=== PATIENT | male | born 1960 | race Caucasian/White ===

== ENCOUNTER 2020-08-31 14:09 | Inpatient (IN) | payer OTHER ==
[2020-08-31 15:11] VITALS: BMI 24.9
[2020-08-31] MEDS ORDERED: P-EPHED 60MG/TRIPROLIDI 2.5MG TABLET PO PRN (23:29)
[2020-08-31] MEDS ORDERED: NALOXONE HCL 0.4 MG/ML VIAL IM PRN (23:29)
[2020-08-31] MEDS ORDERED: MAGNESIUM HYDROX 2400MG/30ML ORAL SUSPENSION 30 ML CUP PO PRN (23:29)
[2020-08-31] MEDS ORDERED: LOPERAMIDE HCL 2 MG CAPSULE PO PRN (23:29)
[2020-08-31] MEDS ORDERED: NALOXONE (NARCAN) HCL 4 MG/0.1 ML SPRAY NS PRN (23:29)
[2020-08-31] MEDS ORDERED: MAGNESIUM CITRATE 300 ML BOTTLE PO PRN (23:29)
[2020-08-31] MEDS ORDERED: guaiFENesin 200 MG/10 ML 10 ML UNIT-DOSE CUPS PO PRN (23:29)
[2020-09-01] MEDS: MELATONIN 5 MG TABLETS PO SCH ×2 (00:49→21:58)
[2020-09-01] MEDS ORDERED: hydrOXYzine PAMOATE 25 MG CAPSULE (FP) PO SCH (06:00)
[2020-09-01] MEDS ORDERED: methaDONE HCL 10 MG TABLET PO ONE ×3 (09:34)
[2020-09-01] MEDS: PRENATAL VITAMINS W/ FOLIC ACID TABLET (FP) PO SCH (09:39)
[2020-09-01] MEDS: BUDESONIDE/FORMETEROL FUMARATE 160/4.5 mcg INHALER IH SCH ×2 (09:40→21:57)
[2020-09-01] MEDS: TAMSULOSIN HCL 0.4 MG CAP PO SCH (09:40)
[2020-09-01] MEDS ORDERED: EMTRICITABINE PO SCH (10:00)
[2020-09-01] MEDS ORDERED: TENOFOVIR ALAFENAMIDE PO SCH (10:00)
[2020-09-01] MEDS ORDERED: ERGOCALCIFEROL (VIT D2) 50,000 UNIT (1.25 MG) CAPSULE PO SCH (10:00)
[2020-09-01] MEDS ORDERED: BICTEGRAVIR PO SCH (10:00)
[2020-09-01] MEDS ORDERED: PANTOPRAZOLE 20 MG TABLET PO SCH (10:00)
[2020-09-01 10:06] LABS: HEMATOCRIT 38.5 % (35.4-49); MCH 32.1 pg (25.7-33.7); MCHC 33.8 g/dl (32.0-35.9); MEAN CELL VOLUME 94.8 fl (80-96); MEAN PLT VOLUME 10.2 fl (7.5-11.1); PLATELET COUNT 182 K/MM3 (134-434); RBC 4.06 M/mm3 (4.00-5.60); RDW 13.9 % (11.9-15.9); URINE APPEARANCE CLEAR; URINE BILIRUBIN NEGATIVE (NEGATIVE); URINE COLOR YELLOW; URINE GLUCOSE (UA) NEGATIVE (NEGATIVE); URINE KETONE NEGATIVE (NEGATIVE); URINE LEUK ESTERASE NEGATIVE (NEGATIVE); URINE NITRITE NEGATIVE (NEGATIVE); URINE PROTEIN NEGATIVE (NEGATIVE)
[2020-09-01 10:18] LABS: ALBUMIN 4.2 g/dl (3.4-5.0); CALCIUM 8.5 mg/dL (8.5-10.1)
[2020-09-01 10:19] LABS: BLOOD UREA NITROGEN 15.4 mg/dL (7-18)
[2020-09-01] MEDS ORDERED: methaDONE HCL 40 MG DISPERSABLE TABLET ONE (10:21)
[2020-09-01] MEDS ORDERED: methaDONE HCL 10 MG TABLET ONE (10:21)
[2020-09-01 10:23] LABS: BILIRUBIN,TOTAL 0.6 mg/dL (0.2-1); TOT PROT 7.6 g/dl (6.4-8.2)
[2020-09-01] MEDS: PANTOPRAZOLE 40 MG TABLET PO SCH (10:24)
[2020-09-01] MEDS: BICTEGRAV/EMTRICIT/TENOFOV (BIKTARVY) 50-200-25 MG TABLET PO SCH (10:24)
[2020-09-01] MEDS: MIRTAZAPINE 15 MG TABLET (FP) PO SCH (21:57)
[2020-09-01] MEDS: risperiDONE 1 MG TABLET PO SCH (21:57)
[2020-09-01] MEDS: THIAMINE HCL 100 MG TABLET (FP) PO SCH (21:58)
[2020-09-01] MEDS: MONTELUKAST NA 10 MG TABLET PO SCH (21:58)
[2020-09-01] MEDS: hydrOXYzine PAMOATE 25 MG CAPSULE (FP) PO PRN (21:59)
[2020-09-02] MEDS ORDERED: methaDONE HCL 10 MG TABLET PO SCH ×2 (06:00)
[2020-09-02] MEDS ORDERED: methaDONE HCL 40 MG DISPERSABLE TABLET ONE (06:36)
[2020-09-02] MEDS ORDERED: methaDONE HCL 10 MG TABLET ONE (06:36)
[2020-09-02] MEDS: PANTOPRAZOLE 40 MG TABLET PO SCH (09:36)
[2020-09-02] MEDS: TAMSULOSIN HCL 0.4 MG CAP PO SCH (09:36)
[2020-09-02] MEDS: PRENATAL VITAMINS W/ FOLIC ACID TABLET (FP) PO SCH (09:36)
[2020-09-02] MEDS: BUDESONIDE/FORMETEROL FUMARATE 160/4.5 mcg INHALER IH SCH ×2 (09:36→21:13)
[2020-09-02] MEDS: BICTEGRAV/EMTRICIT/TENOFOV (BIKTARVY) 50-200-25 MG TABLET PO SCH (09:37)
[2020-09-02] MEDS: MIRTAZAPINE 15 MG TABLET (FP) PO SCH (21:13)
[2020-09-02] MEDS: MAG HYDROX/AL HYDROX/SIMETH 30 ML UNIT-DOSE CUP PO PRN (21:13)
[2020-09-02] MEDS: MELATONIN 5 MG TABLETS PO SCH (21:13)
[2020-09-02] MEDS: risperiDONE 1 MG TABLET PO SCH (21:13)
[2020-09-02] MEDS: MONTELUKAST NA 10 MG TABLET PO SCH (21:13)
[2020-09-02] MEDS: THIAMINE HCL 100 MG TABLET (FP) PO SCH (21:13)
[2020-09-03] MEDS ORDERED: methaDONE HCL 10 MG TABLET ONE (03:34)
[2020-09-03] MEDS ORDERED: methaDONE HCL 40 MG DISPERSABLE TABLET ONE (03:34)
[2020-09-03] MEDS: TAMSULOSIN HCL 0.4 MG CAP PO SCH (08:41)
[2020-09-03] MEDS: MAG HYDROX/AL HYDROX/SIMETH 30 ML UNIT-DOSE CUP PO PRN (09:01)
[2020-09-03] MEDS: PRENATAL VITAMINS W/ FOLIC ACID TABLET (FP) PO SCH (09:41)
[2020-09-03] MEDS: BICTEGRAV/EMTRICIT/TENOFOV (BIKTARVY) 50-200-25 MG TABLET PO SCH (09:41)
[2020-09-03] MEDS: PANTOPRAZOLE 40 MG TABLET PO SCH (09:41)
[2020-09-03] MEDS: BUDESONIDE/FORMETEROL FUMARATE 160/4.5 mcg INHALER IH SCH ×2 (09:42→21:50)
[2020-09-03] MEDS ORDERED: PT OWN MED DRAWER 7, Y5N ONE (19:08)
[2020-09-03] MEDS: risperiDONE 1 MG TABLET PO SCH (21:50)
[2020-09-03] MEDS: MIRTAZAPINE 15 MG TABLET (FP) PO SCH (21:50)
[2020-09-03] MEDS: MONTELUKAST NA 10 MG TABLET PO SCH (21:50)
[2020-09-03] MEDS: MELATONIN 5 MG TABLETS PO SCH (21:50)
[2020-09-03] MEDS: THIAMINE HCL 100 MG TABLET (FP) PO SCH (21:50)
[2020-09-03] MEDS: hydrOXYzine PAMOATE 25 MG CAPSULE (FP) PO PRN (21:52)
[2020-09-04] MEDS ORDERED: methaDONE HCL 10 MG TABLET ONE (03:23)
[2020-09-04] MEDS ORDERED: methaDONE HCL 40 MG DISPERSABLE TABLET ONE (03:23)
[2020-09-04] MEDS ORDERED: PT OWN MED DRAWER 7, Y5N ONE (08:51)
[2020-09-04] MEDS: TAMSULOSIN HCL 0.4 MG CAP PO SCH ×2 (09:38→22:48)
[2020-09-04] MEDS: PANTOPRAZOLE 40 MG TABLET PO SCH (09:38)
[2020-09-04] MEDS: PRENATAL VITAMINS W/ FOLIC ACID TABLET (FP) PO SCH (09:39)
[2020-09-04] MEDS: BICTEGRAV/EMTRICIT/TENOFOV (BIKTARVY) 50-200-25 MG TABLET PO SCH (09:39)
[2020-09-04] MEDS: BUDESONIDE/FORMETEROL FUMARATE 160/4.5 mcg INHALER IH SCH ×2 (09:39→21:14)
[2020-09-04] MEDS: THIAMINE HCL 100 MG TABLET (FP) PO SCH (21:14)
[2020-09-04] MEDS: MONTELUKAST NA 10 MG TABLET PO SCH (21:14)
[2020-09-04] MEDS: MELATONIN 5 MG TABLETS PO SCH (21:14)
[2020-09-04] MEDS: risperiDONE 1 MG TABLET PO SCH (21:14)
[2020-09-04] MEDS: MIRTAZAPINE 15 MG TABLET (FP) PO SCH (21:14)
[2020-09-04] MEDS: hydrOXYzine PAMOATE 25 MG CAPSULE (FP) PO PRN (21:17)
[2020-09-04] MEDS: IBUPROFEN 400 MG TABLET (FP) PO PRN (22:49)
[2020-09-05] MEDS ORDERED: methaDONE HCL 40 MG DISPERSABLE TABLET ONE (06:24)
[2020-09-05] MEDS ORDERED: methaDONE HCL 10 MG TABLET ONE (06:24)
[2020-09-05] MEDS: hydrOXYzine PAMOATE 25 MG CAPSULE (FP) PO PRN ×2 (06:29→21:04)
[2020-09-05] MEDS ORDERED: TAMSULOSIN HCL 0.4 MG CAP PO SCH ×2 (08:30)
[2020-09-05] MEDS: PRENATAL VITAMINS W/ FOLIC ACID TABLET (FP) PO SCH (09:47)
[2020-09-05] MEDS: PANTOPRAZOLE 40 MG TABLET PO SCH (09:48)
[2020-09-05] MEDS: BUDESONIDE/FORMETEROL FUMARATE 160/4.5 mcg INHALER IH SCH ×2 (09:48→21:03)
[2020-09-05] MEDS: BICTEGRAV/EMTRICIT/TENOFOV (BIKTARVY) 50-200-25 MG TABLET PO SCH (09:48)
[2020-09-05] MEDS ORDERED: COLLOIDAL OATMEAL 1 BAR EACH TP PRN (10:45)
[2020-09-05] MEDS: ALBUTEROL SO4 HFA INHALER IH PRN (18:23)
[2020-09-05] MEDS: THIAMINE HCL 100 MG TABLET (FP) PO SCH (21:03)
[2020-09-05] MEDS: MONTELUKAST NA 10 MG TABLET PO SCH (21:03)
[2020-09-05] MEDS: MELATONIN 5 MG TABLETS PO SCH (21:04)
[2020-09-05] MEDS: risperiDONE 1 MG TABLET PO SCH (21:04)
[2020-09-05] MEDS: TAMSULOSIN HCL 0.4 MG CAP PO SCH (21:04)
[2020-09-05] MEDS: MIRTAZAPINE 15 MG TABLET (FP) PO SCH (21:04)
[2020-09-05] MEDS: NAPHAZOLINE/PHENIRAMINE OPHTHALMIC 15 ML BOTTLE OU PRN (21:17)
[2020-09-06] MEDS ORDERED: methaDONE HCL 40 MG DISPERSABLE TABLET ONE (03:57)
[2020-09-06] MEDS ORDERED: methaDONE HCL 10 MG TABLET ONE (03:57)
[2020-09-06 06:08] LABS: SARS-CoV-2 NAA Not Detected (Not Detected)
[2020-09-06] MEDS: PRENATAL VITAMINS W/ FOLIC ACID TABLET (FP) PO SCH (10:42)
[2020-09-06] MEDS: BICTEGRAV/EMTRICIT/TENOFOV (BIKTARVY) 50-200-25 MG TABLET PO SCH (10:43)
[2020-09-06] MEDS: PANTOPRAZOLE 40 MG TABLET PO SCH (10:43)
[2020-09-06] MEDS: BUDESONIDE/FORMETEROL FUMARATE 160/4.5 mcg INHALER IH SCH ×2 (10:43→22:16)
[2020-09-06] MEDS: NAPHAZOLINE/PHENIRAMINE OPHTHALMIC 15 ML BOTTLE OU PRN ×2 (11:13→22:18)
[2020-09-06] MEDS: TOLNAFTATE 1% CREAM 15 GM TUBE TP SCH ×2 (12:35→22:16)
[2020-09-06] MEDS: ALBUTEROL SO4 HFA INHALER IH PRN (15:50)
[2020-09-06] MEDS: hydrOXYzine PAMOATE 25 MG CAPSULE (FP) PO PRN (22:15)
[2020-09-06] MEDS: THIAMINE HCL 100 MG TABLET (FP) PO SCH (22:15)
[2020-09-06] MEDS: risperiDONE 1 MG TABLET PO SCH (22:15)
[2020-09-06] MEDS: MONTELUKAST NA 10 MG TABLET PO SCH (22:15)
[2020-09-06] MEDS: MIRTAZAPINE 15 MG TABLET (FP) PO SCH (22:15)
[2020-09-06] MEDS: TAMSULOSIN HCL 0.4 MG CAP PO SCH (22:15)
[2020-09-06] MEDS: MELATONIN 5 MG TABLETS PO SCH (22:17)
[2020-09-06] MEDS: IBUPROFEN 400 MG TABLET (FP) PO PRN (22:18)
[2020-09-07] MEDS ORDERED: methaDONE HCL 10 MG TABLET ONE (03:57)
[2020-09-07] MEDS ORDERED: methaDONE HCL 40 MG DISPERSABLE TABLET ONE (03:57)
[2020-09-07] MEDS ORDERED: PATIENT'S OWN MEDICATION (NON-FORMULARY) (Umeclidinium Bromide [Incruse Ellipta] 62.5 MCG IH SCH (10:00)
[2020-09-07] MEDS: BUDESONIDE/FORMETEROL FUMARATE 160/4.5 mcg INHALER IH SCH ×2 (10:39→22:07)
[2020-09-07] MEDS: PRENATAL VITAMINS W/ FOLIC ACID TABLET (FP) PO SCH (10:39)
[2020-09-07] MEDS: BICTEGRAV/EMTRICIT/TENOFOV (BIKTARVY) 50-200-25 MG TABLET PO SCH (10:40)
[2020-09-07] MEDS: PANTOPRAZOLE 40 MG TABLET PO SCH (10:40)
[2020-09-07] MEDS: ACETAMINOPHEN 325 MG TABLET (FP) PO PRN ×2 (10:41→17:13)
[2020-09-07] MEDS: TOLNAFTATE 1% CREAM 15 GM TUBE TP SCH ×2 (10:41→22:04)
[2020-09-07] MEDS: hydrOXYzine PAMOATE 25 MG CAPSULE (FP) PO PRN (14:38)
[2020-09-07] MEDS: ALBUTEROL SO4 HFA INHALER IH PRN ×2 (15:49→19:49)
[2020-09-07] MEDS: MAG HYDROX/AL HYDROX/SIMETH 30 ML UNIT-DOSE CUP PO PRN (19:49)
[2020-09-07 20:35] VITALS: BP 81/49; PULSE 88
[2020-09-07] MEDS: TAMSULOSIN HCL 0.4 MG CAP PO SCH (22:02)
[2020-09-07] MEDS: MELATONIN 5 MG TABLETS PO SCH (22:02)
[2020-09-07] MEDS: risperiDONE 1 MG TABLET PO SCH (22:03)
[2020-09-07] MEDS: MONTELUKAST NA 10 MG TABLET PO SCH (22:03)
[2020-09-07] MEDS: MIRTAZAPINE 15 MG TABLET (FP) PO SCH (22:03)
[2020-09-07] MEDS: THIAMINE HCL 100 MG TABLET (FP) PO SCH (22:04)
[2020-09-07 23:56] VITALS: TEMP 99.1
== END 2020-09-08 07:45 | disposition short-term general hospital (02) | DRG 772 ==
LOC: YASAS 14:09 → Y5N 20:44
PROVIDERS: ADMIT Allergy & Immunology; ATTEND Allergy & Immunology
PROC: HZ42ZZZ Group Counseling for Substance Abuse Treatment, Cognitive-Behavioral (ICD-10-PCS; principal; 2020-08-31)
DX: F11.20 Opioid dependence, uncomplicated (principal); F10.20 Alcohol dependence, uncomplicated; F14.20 Cocaine dependence, uncomplicated; F19.282 Other psychoactive substance dependence with psychoactive substance-induced sleep disorder; F41.8 Other specified anxiety disorders; F32.9 Major depressive disorder, single episode, unspecified; Z21 Asymptomatic human immunodeficiency virus [HIV] infection status; I95.9 Hypotension, unspecified; D64.9 Anemia, unspecified; J44.9 Chronic obstructive pulmonary disease, unspecified; K21.9 Gastro-esophageal reflux disease without esophagitis; N40.0 Benign prostatic hyperplasia without lower urinary tract symptoms; Z96.641 Presence of right artificial hip joint; Z86.19 Personal history of other infectious and parasitic diseases; Z87.891 Personal history of nicotine dependence; Z91.410 Personal history of adult physical and sexual abuse
CPT/HCPCS: 36415; 80053; 81003; 85027; 86593; 86780; 93005; 93010; C9803; J2794; U0003; U0005

== ENCOUNTER 2020-09-07 21:18 | Inpatient (IN) | payer OTHER ==
[2020-09-07] MEDS ORDERED: ALBUTEROL SO4 HFA INHALER IH ONE ×2 (22:16→22:59)
[2020-09-07] MEDS ORDERED: LACTATED RINGERS SOLUTION 1000 ML INFUS.BAG IV ONE (22:27)
[2020-09-07 22:37] LABS: BASO % 0.1 % (0-2.0); EOS % 0.1 % (0-4.5); HEMATOCRIT 36.1 % (35.4-49); HEMOGLOBIN 12.1 GM/dL (11.7-16.9); LYMPH % 6.6 % (8-40); MCH 31.6 pg (25.7-33.7); MCHC 33.5 g/dl (32.0-35.9); MEAN CELL VOLUME 94.3 fl (80-96); MEAN PLT VOLUME 9.2 fl (7.5-11.1); MONO % 8.8 % (3.8-10.2); NEUT % 84.4 % (42.8-82.8); PLATELET COUNT 149 K/MM3 (134-434); RBC 3.83 M/mm3 (4.00-5.60); RDW 13.7 % (11.9-15.9); WHITE BLOOD COUNT 13.8 K/mm3 (4.0-10.0)
[2020-09-07 22:50] LABS: INR 1.26 (0.83-1.09); PROTHROMBIN TIME (PATIENT) 15.4 SEC (9.7-13.0)
[2020-09-07 22:53] LABS: ACTIVATED PTT 27.2 SECONDS (25.2-36.5)
[2020-09-07 22:58] LABS: CHLORIDE 96 mmol/L (98-107); SODIUM 133 mmol/L (136-145)
[2020-09-07 23:02] LABS: CALCIUM 8.5 mg/dL (8.5-10.1)
[2020-09-07 23:03] LABS: ALBUMIN 3.6 g/dl (3.4-5.0); ANION GAP 7 MMOL/L (8-16); BLOOD UREA NITROGEN 21.8 mg/dL (7-18); CO2 30 mmol/L (21-32); GLUCOSE,RANDOM 121 mg/dL (74-106)
[2020-09-07 23:06] LABS: CREATININE 1.5 mg/dL (0.55-1.3); SGOT/AST 20 U/L (15-37); SGPT/ALT 25 U/L (13-61)
[2020-09-07 23:07] LABS: BILIRUBIN,TOTAL 0.8 mg/dL (0.2-1); TOT PROT 7.2 g/dl (6.4-8.2)
[2020-09-07 23:08] LABS: ALK PHOS 113 U/L (45-117)
[2020-09-07 23:31] LABS: LACTIC ACID 3.4 mmol/L (0.4-2.0)
[2020-09-07] MEDS ORDERED: PIPERACILLIN/TAZOB 4.5 GM 4.5 GM in DEXTROSE 5%-WATER 100 ML IVPB ONE (23:33)
[2020-09-07] MEDS ORDERED: VANCOMYCIN 1,250 MG in DEXTROSE 5%-WATER - 250 ML IVPB ONE (23:33)
[2020-09-07] MEDS ORDERED: ACETAMINOPHEN 1000 MG/100 ML VIAL (NON FORMULARY) IVPB ONE (23:36)
[2020-09-07] MEDS ORDERED: ACETAMINOPHEN INJECTION 100 ML IVPB ONE (23:45)
[2020-09-07] MEDS ORDERED: PIPERACILLIN/TAZOB 4.5 GM 4.5 GM/100 ML BAG IVPB ONE (23:45)
[2020-09-08] MEDS ORDERED: LACTATED RINGERS SOLUTION 1000 ML INFUS.BAG IV ONE (01:03)
[2020-09-08] MEDS ORDERED: SODIUM CHLORIDE 0.9% 1000 ML INFUS.BAG IV ONE ×2 (01:04→01:05)
[2020-09-08] MEDS ORDERED: NOREPINEPHRINE NS PREMIX 8,000 MCG/500 ML BAG IVPB SCH (01:15)
[2020-09-08] MEDS ORDERED: ONDANSETRON 4 MG/2 ML VIAL ONE (01:29)
[2020-09-08] MEDS: NOREPINEPHRINE NS PREMIX 8,000 MCG/500 ML BAG IVPB SCH (02:20)
[2020-09-08] MEDS ORDERED: VASOPRESSIN 40 UNITS in SODIUM CHLORIDE 98 ML IVPB SCH (03:45)
[2020-09-08] MEDS ORDERED: VANCOMYCIN/WATER BAGS 1,250 MG/250 ML BAG IVPB SCH ×2 (03:45→13:00)
[2020-09-08] MEDS: SODIUM CHLORIDE 1,000 ML IV SCH (03:59)
[2020-09-08 04:42] LABS: PH,URINE 6.5 (5.0-8.0); URINE APPEARANCE CLEAR; URINE BILIRUBIN NEGATIVE (NEGATIVE); URINE COLOR YELLOW; URINE GLUCOSE (UA) NEGATIVE (NEGATIVE); URINE KETONE NEGATIVE (NEGATIVE); URINE LEUK ESTERASE NEGATIVE (NEGATIVE); URINE NITRITE NEGATIVE (NEGATIVE); URINE PROTEIN NEGATIVE (NEGATIVE); URINE UROBILINOGEN 0.2 mg/dL (0.2-1.0)
[2020-09-08] MEDS ORDERED: HYDROCORTISONE 20 MG TABLET PO SCH (04:45)
[2020-09-08 05:21] LABS: COCAINE, UR NEGATIVE ng/ml (CUTOFF=300); OPIATES, URI NEGATIVE ng/ml (CUTOFF=300)
[2020-09-08 05:22] LABS: PHENCYCLIDINE,URINE NEGATIVE ng/ml (CUTOFF=25); URINE AMPHETAMINES NEGATIVE ng/ml (CUTOFF=500); URINE BARBITURATES NEGATIVE ng/ml (CUTOFF=200); URINE BENZODIAZEPINES NEGATIVE ng/ml (CUTOFF=200)
[2020-09-08 05:25] LABS: METHADONE, UR POSITIVE ng/ml (CUTOFF=300)
[2020-09-08 05:48] LABS: LACTIC ACID 2.3 mmol/L (0.4-2.0)
[2020-09-08] MEDS ORDERED: METHADONE HCL 10 MG TABLET (FOR DETOX USE ONLY) PO SCH (06:00)
[2020-09-08] MEDS ORDERED: METHADONE HCL 10 MG TABLET ONE (06:41)
[2020-09-08] MEDS ORDERED: METHADONE HCL 40 MG DISPERSABLE TABLET ONE (06:42)
[2020-09-08] MEDS ORDERED: DEXTROSE 5%-WATER 100 ML IVPB ONE ×3 (06:42→15:35)
[2020-09-08] MEDS ORDERED: PIPERACILLIN/TAZOBACTAM 4.5 GM VIAL IVPB ONE ×2 (06:42→09:09)
[2020-09-08] MEDS: HYDROCORTISONE 40 MG, HYDROCORTISONE 10 MG PO SCH ×2 (07:04→11:31)
[2020-09-08] MEDS: PIPERACILLIN/TAZOB 4.5 GM 4.5 GM in DEXTROSE 5%-WATER 100 ML IVPB SCH ×2 (07:05→11:32)
[2020-09-08] MEDS: METHADONE 120 MG, METHADONE 20 MG PO SCH (07:05)
[2020-09-08] MEDS: HEPARIN NA (PORCINE) 5,000 UNITS/ML 1ML VIAL SQ SCH ×3 (07:05→21:03)
[2020-09-08] MEDS ORDERED: ACETAMINOPHEN 1000 MG/100 ML VIAL (NON FORMULARY) IVPB ONE ×2 (09:02→20:44)
[2020-09-08] MEDS ORDERED: ACETAMINOPHEN INJECTION 100 ML IVPB ONE ×2 (09:09→20:47)
[2020-09-08] MEDS: TAMSULOSIN HCL 0.4 MG CAP PO SCH (09:23)
[2020-09-08] MEDS ORDERED: PT OWN MED DRAWER 7, Y5N ONE (09:33)
[2020-09-08] MEDS ORDERED: FLUDROCORTISONE ACETATE 0.1 MG TABLET (FP) PO SCH (10:00)
[2020-09-08] MEDS ORDERED: NOREPINEPHRINE BITARTRATE 4 MG/4 ML ML IV ONE (10:16)
[2020-09-08 10:26] LABS: HEMATOCRIT 32.5 % (35.4-49); HEMOGLOBIN 10.9 GM/dL (11.7-16.9); MCH 31.7 pg (25.7-33.7); MCHC 33.7 g/dl (32.0-35.9); MEAN CELL VOLUME 94.1 fl (80-96); MEAN PLT VOLUME 9.3 fl (7.5-11.1); PLATELET COUNT 139 K/MM3 (134-434); RBC 3.45 M/mm3 (4.00-5.60); RDW 13.5 % (11.9-15.9); WHITE BLOOD COUNT 16.6 K/mm3 (4.0-10.0)
[2020-09-08 10:30] LABS: INR 1.5 (0.83-1.09); PROTHROMBIN TIME (PATIENT) 17.9 SEC (9.7-13.0)
[2020-09-08 10:33] LABS: ACTIVATED PTT 29.2 SECONDS (25.2-36.5)
[2020-09-08 10:48] LABS: CALCIUM 7.3 mg/dL (8.5-10.1)
[2020-09-08 10:49] LABS: BLOOD UREA NITROGEN 17.7 mg/dL (7-18); MAGNESIUM 1.7 mg/dL (1.8-2.4)
[2020-09-08 10:52] LABS: PHOSPHOROUS 4.1 mg/dL (2.5-4.9)
[2020-09-08 10:53] LABS: BILIRUBIN,TOTAL 1.1 mg/dL (0.2-1); TOT PROT 5.6 g/dl (6.4-8.2)
[2020-09-08 10:58] LABS: ALBUMIN 2.6 g/dl (3.4-5.0)
[2020-09-08] MEDS: risperiDONE 1 MG TABLET PO SCH (11:26)
[2020-09-08] MEDS: TIOTROPIUM BROMIDE 2.5 MCG (SPIRIVA) RESPIMAT INHALER IH SCH (11:26)
[2020-09-08] MEDS: MUPIROCIN 2% TOPICAL OINTMENT FOR DECOLONIZATION NS SCH ×2 (11:26→21:00)
[2020-09-08] MEDS: BUDESONIDE/FORMETEROL FUMARATE 160/4.5 mcg INHALER IH SCH ×2 (11:27→21:03)
[2020-09-08] MEDS ORDERED: VANCOMYCIN 1 GM in D5W (PRE-DOCKED) 1,000 MG/250 ML IVPB ONE (12:00)
[2020-09-08] MEDS ORDERED: MAGNESIUM 1GM/D5W 100ML - 100 ML IVPB IVPB ONE (13:45)
[2020-09-08] MEDS: CEFTRIAXONE 2 GM in DEXTROSE 5%-WATER 2 GM/100 ML BAG IVPB SCH (15:40)
[2020-09-08] MEDS: AZITHROMYCIN IVPB 500 MG/250 ML BAG IVPB SCH (15:40)
[2020-09-08] MEDS: BICTEGRAV/EMTRICIT/TENOFOV (BIKTARVY) 50-200-25 MG TABLET PO SCH (17:17)
[2020-09-08] MEDS: MIRTAZAPINE 15 MG TABLET (FP) PO SCH (21:00)
[2020-09-08] MEDS: MELATONIN 5 MG TABLETS PO SCH (21:00)
[2020-09-08] MEDS: MONTELUKAST NA 10 MG TABLET PO SCH (21:00)
[2020-09-08] MEDS: CHLORHEXIDINE GLUCONATE 4% CLEANSER FOR DECOLONIZATION TP SCH (21:03)
[2020-09-08] MEDS ORDERED: BENZOCAINE/MENTH/CETYLPYRD CL 1 EACH LOZENGE MM PRN ×3 (22:00)
[2020-09-09] MEDS ORDERED: PIPERACILLIN/TAZOB 4.5 GM 4.5 GM in DEXTROSE 5%-WATER 100 ML IVPB SCH (03:00)
[2020-09-09] MEDS: NOREPINEPHRINE NS PREMIX 8,000 MCG/500 ML BAG IVPB SCH (06:03)
[2020-09-09] MEDS ORDERED: METHADONE HCL 10 MG TABLET ONE (06:04)
[2020-09-09] MEDS ORDERED: METHADONE HCL 40 MG DISPERSABLE TABLET ONE (06:05)
[2020-09-09] MEDS: METHADONE 120 MG, METHADONE 20 MG PO SCH (06:23)
[2020-09-09] MEDS: HEPARIN NA (PORCINE) 5,000 UNITS/ML 1ML VIAL SQ SCH ×3 (06:23→21:01)
[2020-09-09] MEDS: SODIUM CHLORIDE 1,000 ML IV SCH ×2 (06:24→09:46)
[2020-09-09 07:01] LABS: BASO % 0.3 % (0-2.0); EOS % 0.3 % (0-4.5); HEMATOCRIT 29.1 % (35.4-49); HEMOGLOBIN 9.7 GM/dL (11.7-16.9); LYMPH % 14.6 % (8-40); MCH 31.9 pg (25.7-33.7); MCHC 33.4 g/dl (32.0-35.9); MEAN CELL VOLUME 95.4 fl (80-96); MEAN PLT VOLUME 9.9 fl (7.5-11.1); MONO % 7.6 % (3.8-10.2); NEUT % 77.2 % (42.8-82.8); PLATELET COUNT 98 K/MM3 (134-434); RBC 3.06 M/mm3 (4.00-5.60); RDW 14.2 % (11.9-15.9); WHITE BLOOD COUNT 10.8 K/mm3 (4.0-10.0)
[2020-09-09 07:35] LABS: BLOOD UREA NITROGEN 15.5 mg/dL (7-18); CALCIUM 7.6 mg/dL (8.5-10.1); MAGNESIUM 2.2 mg/dL (1.8-2.4)
[2020-09-09 07:36] LABS: ALBUMIN 2.2 g/dl (3.4-5.0)
[2020-09-09 07:38] LABS: CREATININE 0.6 mg/dL (0.55-1.3); PHOSPHOROUS 1.6 mg/dL (2.5-4.9)
[2020-09-09 07:39] LABS: TOT PROT 5.3 g/dl (6.4-8.2)
[2020-09-09 07:41] LABS: BILIRUBIN,TOTAL 0.3 mg/dL (0.2-1)
[2020-09-09] MEDS ORDERED: NAPH,MB-DB/K PH,MBDB POWDER PACKET PO ONE (08:49)
[2020-09-09] MEDS ORDERED: PT OWN MED DRAWER 7, Y5N ONE ×2 (09:14→16:57)
[2020-09-09] MEDS ORDERED: DEXTROSE 5%-WATER 100 ML IVPB ONE (09:14)
[2020-09-09] MEDS: TAMSULOSIN HCL 0.4 MG CAP PO SCH (09:21)
[2020-09-09] MEDS: BICTEGRAV/EMTRICIT/TENOFOV (BIKTARVY) 50-200-25 MG TABLET PO SCH (09:22)
[2020-09-09] MEDS: CEFTRIAXONE 2 GM in DEXTROSE 5%-WATER 2 GM/100 ML BAG IVPB SCH (09:23)
[2020-09-09] MEDS: risperiDONE 1 MG TABLET PO SCH (09:23)
[2020-09-09] MEDS: AZITHROMYCIN IVPB 500 MG/250 ML BAG IVPB SCH (09:24)
[2020-09-09] MEDS: MUPIROCIN 2% TOPICAL OINTMENT FOR DECOLONIZATION NS SCH ×2 (09:26→21:01)
[2020-09-09] MEDS: TIOTROPIUM BROMIDE 2.5 MCG (SPIRIVA) RESPIMAT INHALER IH SCH (09:26)
[2020-09-09] MEDS: BUDESONIDE/FORMETEROL FUMARATE 160/4.5 mcg INHALER IH SCH ×2 (09:26→21:02)
[2020-09-09] MEDS ORDERED: ACETAMINOPHEN 1000 MG/100 ML VIAL (NON FORMULARY) IVPB ONE ×2 (10:27→21:11)
[2020-09-09] MEDS ORDERED: ACETAMINOPHEN 325 MG TABLET (FP) PO PRN ×2 (10:45)
[2020-09-09] MEDS ORDERED: oxyCODONE HCL 5 MG TABLET PO PRN ×2 (10:45)
[2020-09-09] MEDS ORDERED: clonazePAM 0.5 MG TABLET PO PRN (11:16)
[2020-09-09] MEDS ORDERED: IBUPROFEN 400 MG TABLET (FP) PO PRN (11:16)
[2020-09-09] MEDS ORDERED: SODIUM CHLORIDE 1,000 ML IV SCH ×3 (11:17→16:18)
[2020-09-09] MEDS ORDERED: SODIUM CHLORIDE 500 ML IV STA (11:19)
[2020-09-09] MEDS ORDERED: POTASSIUM PHOSPHATE 15 MM in DEXTROSE 5%-WATER - 250 ML IVPB ONE (16:13)
[2020-09-09] MEDS ORDERED: NOREPINEPHRINE BITARTRATE 8,000 MCG/500 ML BAG IVPB ONE (19:32)
[2020-09-09] MEDS ORDERED: ACETAMINOPHEN INJECTION 100 ML IVPB ONE (20:49)
[2020-09-09] MEDS: MONTELUKAST NA 10 MG TABLET PO SCH (21:01)
[2020-09-09] MEDS: MIRTAZAPINE 15 MG TABLET (FP) PO SCH (21:01)
[2020-09-09] MEDS: MELATONIN 5 MG TABLETS PO SCH (21:01)
[2020-09-09] MEDS: CHLORHEXIDINE GLUCONATE 4% CLEANSER FOR DECOLONIZATION TP SCH (21:01)
[2020-09-09] MEDS: guaiFENesin/D-METHORPHAN HB 10 ML UNIT-DOSE CUPS PO PRN (21:50)
[2020-09-10] MEDS ORDERED: METHADONE HCL 10 MG TABLET ONE (05:24)
[2020-09-10] MEDS ORDERED: METHADONE HCL 40 MG DISPERSABLE TABLET ONE (05:25)
[2020-09-10] MEDS ORDERED: SCOPOLAMINE HYDROBROMIDE 1 PATCH PATCH.TD72 TD SCH (06:15)
[2020-09-10 06:28] LABS: BASO % 0.1 % (0-2.0); EOS % 1.3 % (0-4.5); HEMATOCRIT 29.3 % (35.4-49); HEMOGLOBIN 10.1 GM/dL (11.7-16.9); LYMPH % 12.9 % (8-40); MCH 32.3 pg (25.7-33.7); MCHC 34.5 g/dl (32.0-35.9); MEAN CELL VOLUME 93.6 fl (80-96); MEAN PLT VOLUME 9.6 fl (7.5-11.1); MONO % 5.9 % (3.8-10.2); NEUT % 79.8 % (42.8-82.8); PLATELET COUNT 114 K/MM3 (134-434); RBC 3.13 M/mm3 (4.00-5.60); RDW 13.9 % (11.9-15.9)
[2020-09-10 06:48] LABS: CALCIUM 7.3 mg/dL (8.5-10.1)
[2020-09-10 06:49] LABS: ALBUMIN 2.3 g/dl (3.4-5.0); BLOOD UREA NITROGEN 11.8 mg/dL (7-18); MAGNESIUM 1.6 mg/dL (1.8-2.4)
[2020-09-10 06:51] LABS: BILIRUBIN,TOTAL 0.3 mg/dL (0.2-1)
[2020-09-10 06:52] LABS: CREATININE 0.5 mg/dL (0.55-1.3); TOT PROT 5.5 g/dl (6.4-8.2)
[2020-09-10] MEDS: METHADONE 120 MG, METHADONE 20 MG PO SCH (06:52)
[2020-09-10] MEDS: NOREPINEPHRINE NS PREMIX 8,000 MCG/500 ML BAG IVPB SCH (06:52)
[2020-09-10] MEDS: HEPARIN NA (PORCINE) 5,000 UNITS/ML 1ML VIAL SQ SCH ×3 (06:52→22:08)
[2020-09-10] MEDS ORDERED: PT OWN MED DRAWER 7, Y5N ONE (10:17)
[2020-09-10] MEDS ORDERED: NAPH,MB-DB/K PH,MBDB POWDER PACKET PO ONE (10:20)
[2020-09-10] MEDS ORDERED: DEXTROSE 5%-WATER 100 ML IVPB ONE (10:20)
[2020-09-10] MEDS ORDERED: MAGNESIUM SULF 50% (8.12 MEQ/2 ML-1 GM VIAL) IVPB ONE (10:30)
[2020-09-10] MEDS: AZITHROMYCIN IVPB 500 MG/250 ML BAG IVPB SCH (10:45)
[2020-09-10] MEDS: CEFTRIAXONE 2 GM in DEXTROSE 5%-WATER 2 GM/100 ML BAG IVPB SCH (10:46)
[2020-09-10] MEDS: BICTEGRAV/EMTRICIT/TENOFOV (BIKTARVY) 50-200-25 MG TABLET PO SCH (10:47)
[2020-09-10] MEDS: MUPIROCIN 2% TOPICAL OINTMENT FOR DECOLONIZATION NS SCH ×2 (10:47→22:08)
[2020-09-10] MEDS: TAMSULOSIN HCL 0.4 MG CAP PO SCH (10:47)
[2020-09-10] MEDS: risperiDONE 1 MG TABLET PO SCH (10:48)
[2020-09-10] MEDS: BUDESONIDE/FORMETEROL FUMARATE 160/4.5 mcg INHALER IH SCH ×2 (11:54→22:08)
[2020-09-10] MEDS: TIOTROPIUM BROMIDE 2.5 MCG (SPIRIVA) RESPIMAT INHALER IH SCH (11:55)
[2020-09-10] MEDS: MONTELUKAST NA 10 MG TABLET PO SCH (22:08)
[2020-09-10] MEDS: CHLORHEXIDINE GLUCONATE 4% CLEANSER FOR DECOLONIZATION TP SCH (22:08)
[2020-09-10] MEDS: MELATONIN 5 MG TABLETS PO SCH (22:08)
[2020-09-10] MEDS: MIRTAZAPINE 15 MG TABLET (FP) PO SCH (22:08)
[2020-09-10 23:09] VITALS: BMI 25.0
[2020-09-11] MEDS ORDERED: METHADONE HCL 40 MG DISPERSABLE TABLET ONE (05:13)
[2020-09-11] MEDS ORDERED: METHADONE HCL 10 MG TABLET ONE (05:13)
[2020-09-11] MEDS: METHADONE 120 MG, METHADONE 20 MG PO SCH (05:16)
[2020-09-11] MEDS: NOREPINEPHRINE NS PREMIX 8,000 MCG/500 ML BAG IVPB SCH (05:17)
[2020-09-11] MEDS: HEPARIN NA (PORCINE) 5,000 UNITS/ML 1ML VIAL SQ SCH ×3 (05:17→21:02)
[2020-09-11 06:59] LABS: ALBUMIN 2.5 g/dl (3.4-5.0); BLOOD UREA NITROGEN 8.8 mg/dL (7-18); CALCIUM 8.1 mg/dL (8.5-10.1); MAGNESIUM 1.5 mg/dL (1.8-2.4)
[2020-09-11 07:02] LABS: CREATININE 0.5 mg/dL (0.55-1.3)
[2020-09-11 07:03] LABS: PHOSPHOROUS 2.5 mg/dL (2.5-4.9)
[2020-09-11 07:04] LABS: BILIRUBIN,TOTAL 0.8 mg/dL (0.2-1)
[2020-09-11] MEDS ORDERED: PT OWN MED DRAWER 7, Y5N ONE ×2 (07:53→10:20)
[2020-09-11] MEDS ORDERED: DEXTROSE 5%-WATER 100 ML IVPB ONE (07:57)
[2020-09-11] MEDS: TAMSULOSIN HCL 0.4 MG CAP PO SCH (08:09)
[2020-09-11] MEDS ORDERED: MAGNESIUM SULFATE IN WATER 2 GM/50 ML IVPB IVPB ONE (08:26)
[2020-09-11] MEDS ORDERED: KCL 10 MEQ IVPB 10 MEQ/100 ML INFUS.BAG IVPB SCH (08:30)
[2020-09-11] MEDS ORDERED: ALBUTEROL SO4 0.083% IH SOL 2.5 MG/3 ML VIAL.NEB. NEB PRN (09:03)
[2020-09-11] MEDS ORDERED: MULTIVITAMINS (DAILY MVI) TABLET (FP) PO SCH (10:00)
[2020-09-11] MEDS: guaiFENesin/D-METHORPHAN HB 10 ML UNIT-DOSE CUPS PO PRN (10:04)
[2020-09-11] MEDS: MAGNESIUM 1GM/D5W - 1 GM/100 ML IVPB IVPB SCH ×2 (10:05→10:48)
[2020-09-11] MEDS: CEFTRIAXONE 2 GM in DEXTROSE 5%-WATER 2 GM/100 ML BAG IVPB SCH (10:18)
[2020-09-11] MEDS: BUDESONIDE/FORMETEROL FUMARATE 160/4.5 mcg INHALER IH SCH ×2 (10:24→21:03)
[2020-09-11] MEDS: TIOTROPIUM BROMIDE 2.5 MCG (SPIRIVA) RESPIMAT INHALER IH SCH (10:24)
[2020-09-11] MEDS: BICTEGRAV/EMTRICIT/TENOFOV (BIKTARVY) 50-200-25 MG TABLET PO SCH (10:26)
[2020-09-11] MEDS: risperiDONE 1 MG TABLET PO SCH (10:26)
[2020-09-11] MEDS: MUPIROCIN 2% TOPICAL OINTMENT FOR DECOLONIZATION NS SCH (10:26)
[2020-09-11] MEDS: AZITHROMYCIN IVPB 500 MG/250 ML BAG IVPB SCH (10:27)
[2020-09-11] MEDS ORDERED: BENZOCAINE/MENTH/CETYLPYRD CL 1 EACH LOZENGE MM PRN (14:04)
[2020-09-11] MEDS ORDERED: DEXTROSE 5%-WATER - 50 ML IVPB ONE ×2 (15:44→23:55)
[2020-09-11] MEDS ORDERED: PIPERACILLIN/TAZOBACTAM 3.375 GM VIAL IVPB ONE ×2 (15:44→23:54)
[2020-09-11] MEDS: PIPERACILLIN/TAZOB 3.375 GM 3.375 GM in DEXTROSE 5%-WATER - 50 ML IVPB SCH ×2 (16:03→17:58)
[2020-09-11] MEDS: MELATONIN 5 MG TABLETS PO SCH (21:02)
[2020-09-11] MEDS: clonazePAM 0.5 MG TABLET PO PRN (21:02)
[2020-09-11] MEDS: MIRTAZAPINE 15 MG TABLET (FP) PO SCH (21:02)
[2020-09-11] MEDS: MAGNESIUM OXIDE 400 MG TABLET (FP) PO SCH (21:02)
[2020-09-11] MEDS: MONTELUKAST NA 10 MG TABLET PO SCH (21:02)
[2020-09-11] MEDS: ALBUTEROL SO4 0.083% IH SOL 2.5 MG/3 ML VIAL.NEB. NEB PRN (21:10)
[2020-09-11] MEDS: ACETAMINOPHEN 325 MG TABLET (FP) PO PRN (21:41)
[2020-09-12] MEDS: PIPERACILLIN/TAZOB 3.375 GM 3.375 GM in DEXTROSE 5%-WATER - 50 ML IVPB SCH ×2 (01:14→09:02)
[2020-09-12] MEDS ORDERED: METHADONE HCL 10 MG TABLET ONE (05:07)
[2020-09-12] MEDS ORDERED: METHADONE HCL 40 MG DISPERSABLE TABLET ONE (05:08)
[2020-09-12] MEDS: METHADONE 120 MG, METHADONE 20 MG PO SCH (05:25)
[2020-09-12] MEDS: HEPARIN NA (PORCINE) 5,000 UNITS/ML 1ML VIAL SQ SCH ×3 (05:25→21:02)
[2020-09-12 08:05] LABS: BASO % 0.2 % (0-2.0); HEMATOCRIT 30.1 % (35.4-49); HEMOGLOBIN 10.4 GM/dL (11.7-16.9); LYMPH % 17.7 % (8-40); MCH 32.1 pg (25.7-33.7); MCHC 34.5 g/dl (32.0-35.9); MEAN CELL VOLUME 93.1 fl (80-96); MEAN PLT VOLUME 9.2 fl (7.5-11.1); MONO % 14.4 % (3.8-10.2); NEUT % 66.7 % (42.8-82.8); PLATELET COUNT 147 K/MM3 (134-434); RBC 3.23 M/mm3 (4.00-5.60); RDW 13.9 % (11.9-15.9); WHITE BLOOD COUNT 7.6 K/mm3 (4.0-10.0)
[2020-09-12 08:30] LABS: ALBUMIN 2.3 g/dl (3.4-5.0); BLOOD UREA NITROGEN 10.3 mg/dL (7-18)
[2020-09-12 08:31] LABS: MAGNESIUM 2.1 mg/dL (1.8-2.4)
[2020-09-12] MEDS: TAMSULOSIN HCL 0.4 MG CAP PO SCH (08:31)
[2020-09-12] MEDS ORDERED: PT OWN MED DRAWER 7, Y5N ONE ×4 (08:33→20:20)
[2020-09-12 08:34] LABS: CREATININE 0.6 mg/dL (0.55-1.3)
[2020-09-12] MEDS: BICTEGRAV/EMTRICIT/TENOFOV (BIKTARVY) 50-200-25 MG TABLET PO SCH (08:34)
[2020-09-12 08:35] LABS: BILIRUBIN,TOTAL 0.6 mg/dL (0.2-1); PHOSPHOROUS 3.8 mg/dL (2.5-4.9)
[2020-09-12 08:36] LABS: TOT PROT 5.9 g/dl (6.4-8.2)
[2020-09-12] MEDS ORDERED: DEXTROSE 5%-WATER - 50 ML IVPB ONE (08:43)
[2020-09-12] MEDS ORDERED: PIPERACILLIN/TAZOBACTAM 3.375 GM VIAL IVPB ONE (08:43)
[2020-09-12] MEDS: BUDESONIDE/FORMETEROL FUMARATE 160/4.5 mcg INHALER IH SCH ×2 (09:01→21:01)
[2020-09-12] MEDS: MULTIVITAMINS (DAILY MVI) TABLET (FP) PO SCH (09:02)
[2020-09-12] MEDS: MAGNESIUM OXIDE 400 MG TABLET (FP) PO SCH ×2 (09:02→21:00)
[2020-09-12] MEDS: risperiDONE 1 MG TABLET PO SCH (09:02)
[2020-09-12] MEDS: TIOTROPIUM BROMIDE 2.5 MCG (SPIRIVA) RESPIMAT INHALER IH SCH (09:02)
[2020-09-12 11:49] LABS: ANISOCYTOSIS 0; MACROCYTOSIS 0; PLATELET ESTIMATE DECREASED
[2020-09-12] MEDS: SODIUM CHLORIDE NASAL SPRAY 44 ML BOTTLE NS SCH ×3 (12:00→21:00)
[2020-09-12] MEDS: AMPICILLIN NA/SULBACTAM NA 3 GM in SODIUM CHLORIDE 100 ML IVPB SCH ×2 (14:39→20:54)
[2020-09-12] MEDS: MONTELUKAST NA 10 MG TABLET PO SCH (21:00)
[2020-09-12] MEDS: MIRTAZAPINE 15 MG TABLET (FP) PO SCH (21:00)
[2020-09-12] MEDS: MELATONIN 5 MG TABLETS PO SCH (21:16)
[2020-09-12] MEDS: clonazePAM 0.5 MG TABLET PO PRN (21:18)
[2020-09-13] MEDS: AMPICILLIN NA/SULBACTAM NA 3 GM in SODIUM CHLORIDE 100 ML IVPB SCH ×4 (02:21→21:02)
[2020-09-13] MEDS ORDERED: METHADONE HCL 10 MG TABLET ONE (05:03)
[2020-09-13] MEDS ORDERED: METHADONE HCL 40 MG DISPERSABLE TABLET ONE (05:04)
[2020-09-13] MEDS: METHADONE 120 MG, METHADONE 20 MG PO SCH (05:33)
[2020-09-13] MEDS: HEPARIN NA (PORCINE) 5,000 UNITS/ML 1ML VIAL SQ SCH ×3 (05:37→21:02)
[2020-09-13] MEDS: SODIUM CHLORIDE NASAL SPRAY 44 ML BOTTLE NS SCH ×3 (05:41→21:03)
[2020-09-13] MEDS ORDERED: PT OWN MED DRAWER 7, Y5N ONE ×5 (05:44→19:56)
[2020-09-13] MEDS: SCOPOLAMINE HYDROBROMIDE 1 PATCH PATCH.TD72 TD SCH (05:45)
[2020-09-13 08:42] LABS: BASO % 0.3 % (0-2.0); EOS % 3.7 % (0-4.5); HEMATOCRIT 30.3 % (35.4-49); HEMOGLOBIN 10.3 GM/dL (11.7-16.9); LYMPH % 25.8 % (8-40); MCH 31.8 pg (25.7-33.7); MCHC 34.2 g/dl (32.0-35.9); MEAN CELL VOLUME 93.2 fl (80-96); MEAN PLT VOLUME 8.9 fl (7.5-11.1); MONO % 13.6 % (3.8-10.2); NEUT % 56.6 % (42.8-82.8); PLATELET COUNT 169 K/MM3 (134-434); RBC 3.25 M/mm3 (4.00-5.60); WHITE BLOOD COUNT 6.2 K/mm3 (4.0-10.0)
[2020-09-13] MEDS: TAMSULOSIN HCL 0.4 MG CAP PO SCH (08:46)
[2020-09-13] MEDS: BUDESONIDE/FORMETEROL FUMARATE 160/4.5 mcg INHALER IH SCH ×2 (09:00→21:04)
[2020-09-13] MEDS: risperiDONE 1 MG TABLET PO SCH (09:01)
[2020-09-13] MEDS: MAGNESIUM OXIDE 400 MG TABLET (FP) PO SCH ×2 (09:01→21:02)
[2020-09-13] MEDS: PANTOPRAZOLE 40 MG TABLET PO SCH (09:01)
[2020-09-13] MEDS: MULTIVITAMINS (DAILY MVI) TABLET (FP) PO SCH (09:01)
[2020-09-13] MEDS: TIOTROPIUM BROMIDE 2.5 MCG (SPIRIVA) RESPIMAT INHALER IH SCH (09:01)
[2020-09-13 09:07] LABS: CALCIUM 8.4 mg/dL (8.5-10.1)
[2020-09-13 09:08] LABS: ALBUMIN 2.4 g/dl (3.4-5.0); BLOOD UREA NITROGEN 13.9 mg/dL (7-18); MAGNESIUM 2.2 mg/dL (1.8-2.4)
[2020-09-13 09:11] LABS: CREATININE 0.5 mg/dL (0.55-1.3)
[2020-09-13 09:13] LABS: BILIRUBIN,TOTAL 0.6 mg/dL (0.2-1); TOT PROT 6.3 g/dl (6.4-8.2)
[2020-09-13] MEDS: BICTEGRAV/EMTRICIT/TENOFOV (BIKTARVY) 50-200-25 MG TABLET PO SCH (09:19)
[2020-09-13] MEDS: clonazePAM 0.5 MG TABLET PO PRN ×2 (09:24→21:46)
[2020-09-13 09:51] LABS: ANISOCYTOSIS 0; MACROCYTOSIS 0; PLATELET ESTIMATE NORMAL
[2020-09-13] MEDS: ALBUTEROL SO4 0.083% IH SOL 2.5 MG/3 ML VIAL.NEB. NEB PRN (20:03)
[2020-09-13] MEDS: MONTELUKAST NA 10 MG TABLET PO SCH (21:02)
[2020-09-13] MEDS: MIRTAZAPINE 15 MG TABLET (FP) PO SCH (21:02)
[2020-09-13] MEDS: MELATONIN 5 MG TABLETS PO SCH (21:02)
[2020-09-14] MEDS: AMPICILLIN NA/SULBACTAM NA 3 GM in SODIUM CHLORIDE 100 ML IVPB SCH ×4 (02:18→21:22)
[2020-09-14] MEDS ORDERED: METHADONE HCL 10 MG TABLET ONE (05:27)
[2020-09-14] MEDS ORDERED: METHADONE HCL 40 MG DISPERSABLE TABLET ONE (05:28)
[2020-09-14] MEDS: METHADONE 120 MG, METHADONE 20 MG PO SCH (05:41)
[2020-09-14] MEDS: HEPARIN NA (PORCINE) 5,000 UNITS/ML 1ML VIAL SQ SCH ×3 (05:43→21:21)
[2020-09-14] MEDS: SODIUM CHLORIDE NASAL SPRAY 44 ML BOTTLE NS SCH ×3 (05:46→21:23)
[2020-09-14 08:59] LABS: BASO % 0.5 % (0-2.0); EOS % 2.9 % (0-4.5); HEMATOCRIT 31.1 % (35.4-49); HEMOGLOBIN 10.4 GM/dL (11.7-16.9); MCH 31.2 pg (25.7-33.7); MCHC 33.5 g/dl (32.0-35.9); MEAN CELL VOLUME 93.1 fl (80-96); MEAN PLT VOLUME 9.1 fl (7.5-11.1); MONO % 10.1 % (3.8-10.2); NEUT % 56.5 % (42.8-82.8); PLATELET COUNT 233 K/MM3 (134-434); RBC 3.34 M/mm3 (4.00-5.60); RDW 13.8 % (11.9-15.9); WHITE BLOOD COUNT 7.2 K/mm3 (4.0-10.0)
[2020-09-14] MEDS ORDERED: PT OWN MED DRAWER 7, Y5N ONE ×2 (08:59→14:18)
[2020-09-14] MEDS: PANTOPRAZOLE 40 MG TABLET PO SCH (09:04)
[2020-09-14] MEDS: TAMSULOSIN HCL 0.4 MG CAP PO SCH (09:04)
[2020-09-14] MEDS: risperiDONE 1 MG TABLET PO SCH (09:04)
[2020-09-14] MEDS: MAGNESIUM OXIDE 400 MG TABLET (FP) PO SCH ×2 (09:04→21:21)
[2020-09-14] MEDS: MULTIVITAMINS (DAILY MVI) TABLET (FP) PO SCH (09:04)
[2020-09-14] MEDS: guaiFENesin/D-METHORPHAN HB 10 ML UNIT-DOSE CUPS PO PRN ×2 (09:04→21:21)
[2020-09-14] MEDS: TIOTROPIUM BROMIDE 2.5 MCG (SPIRIVA) RESPIMAT INHALER IH SCH (09:05)
[2020-09-14] MEDS: BUDESONIDE/FORMETEROL FUMARATE 160/4.5 mcg INHALER IH SCH ×2 (09:05→21:23)
[2020-09-14] MEDS: BICTEGRAV/EMTRICIT/TENOFOV (BIKTARVY) 50-200-25 MG TABLET PO SCH (09:06)
[2020-09-14 09:16] LABS: CALCIUM 8.6 mg/dL (8.5-10.1)
[2020-09-14 09:17] LABS: ALBUMIN 2.4 g/dl (3.4-5.0); BLOOD UREA NITROGEN 15.4 mg/dL (7-18); MAGNESIUM 2.3 mg/dL (1.8-2.4)
[2020-09-14 09:20] LABS: CREATININE 0.6 mg/dL (0.55-1.3)
[2020-09-14 09:21] LABS: BILIRUBIN,TOTAL 0.5 mg/dL (0.2-1)
[2020-09-14 09:22] LABS: TOT PROT 6.3 g/dl (6.4-8.2)
[2020-09-14 11:39] LABS: ANISOCYTOSIS 0; MACROCYTOSIS 0; PLATELET ESTIMATE NORMAL
[2020-09-14] MEDS: MELATONIN 5 MG TABLETS PO SCH (21:21)
[2020-09-14] MEDS: MIRTAZAPINE 15 MG TABLET (FP) PO SCH (21:21)
[2020-09-14] MEDS: MONTELUKAST NA 10 MG TABLET PO SCH (21:22)
[2020-09-15] MEDS: AMPICILLIN NA/SULBACTAM NA 3 GM in SODIUM CHLORIDE 100 ML IVPB SCH ×4 (02:37→21:12)
[2020-09-15] MEDS ORDERED: METHADONE HCL 40 MG DISPERSABLE TABLET ONE (05:53)
[2020-09-15] MEDS ORDERED: METHADONE HCL 10 MG TABLET ONE (05:53)
[2020-09-15] MEDS: HEPARIN NA (PORCINE) 5,000 UNITS/ML 1ML VIAL SQ SCH ×3 (06:09→21:09)
[2020-09-15] MEDS: guaiFENesin/D-METHORPHAN HB 10 ML UNIT-DOSE CUPS PO PRN (06:09)
[2020-09-15] MEDS: SODIUM CHLORIDE NASAL SPRAY 44 ML BOTTLE NS SCH ×3 (06:09→21:11)
[2020-09-15] MEDS: METHADONE 120 MG, METHADONE 20 MG PO SCH (06:09)
[2020-09-15] MEDS: ALBUTEROL SO4 0.083% IH SOL 2.5 MG/3 ML VIAL.NEB. NEB PRN ×2 (07:25→20:00)
[2020-09-15 08:17] LABS: BASO % 0.3 % (0-2.0); EOS % 2.5 % (0-4.5); HEMATOCRIT 32.3 % (35.4-49); LYMPH % 28.3 % (8-40); MCH 31.6 pg (25.7-33.7); MCHC 34.1 g/dl (32.0-35.9); MEAN CELL VOLUME 92.8 fl (80-96); MEAN PLT VOLUME 9.1 fl (7.5-11.1); MONO % 7.3 % (3.8-10.2); NEUT % 61.6 % (42.8-82.8); PLATELET COUNT 242 K/MM3 (134-434); RBC 3.48 M/mm3 (4.00-5.60); RDW 13.5 % (11.9-15.9); WHITE BLOOD COUNT 7.6 K/mm3 (4.0-10.0)
[2020-09-15 08:23] LABS: CALCIUM 8.8 mg/dL (8.5-10.1)
[2020-09-15 08:24] LABS: ALBUMIN 2.7 g/dl (3.4-5.0); BLOOD UREA NITROGEN 17.3 mg/dL (7-18); MAGNESIUM 2.3 mg/dL (1.8-2.4)
[2020-09-15 08:26] LABS: CREATININE 0.7 mg/dL (0.55-1.3)
[2020-09-15 08:28] LABS: TOT PROT 6.7 g/dl (6.4-8.2)
[2020-09-15 08:29] LABS: BILIRUBIN,TOTAL 0.5 mg/dL (0.2-1)
[2020-09-15] MEDS ORDERED: PT OWN MED DRAWER 7, Y5N ONE (09:01)
[2020-09-15] MEDS: PANTOPRAZOLE 40 MG TABLET PO SCH (09:03)
[2020-09-15] MEDS: TAMSULOSIN HCL 0.4 MG CAP PO SCH (09:03)
[2020-09-15] MEDS: MULTIVITAMINS (DAILY MVI) TABLET (FP) PO SCH (09:03)
[2020-09-15] MEDS: MAGNESIUM OXIDE 400 MG TABLET (FP) PO SCH ×2 (09:03→21:10)
[2020-09-15] MEDS: BICTEGRAV/EMTRICIT/TENOFOV (BIKTARVY) 50-200-25 MG TABLET PO SCH (09:04)
[2020-09-15] MEDS: risperiDONE 1 MG TABLET PO SCH (09:05)
[2020-09-15] MEDS: TIOTROPIUM BROMIDE 2.5 MCG (SPIRIVA) RESPIMAT INHALER IH SCH (09:11)
[2020-09-15] MEDS: BUDESONIDE/FORMETEROL FUMARATE 160/4.5 mcg INHALER IH SCH ×2 (09:12→21:11)
[2020-09-15] MEDS ORDERED: SODIUM CHLORIDE 100 ML IVPB ONE ×2 (13:56→20:10)
[2020-09-15] MEDS ORDERED: AMPICILLIN NA/SULBACTAM NA 3 GM VIAL ONE ×2 (13:56→20:10)
[2020-09-15] MEDS: LYTES/YERBA SANTA 240 ML BOTTLE MM SCH (17:54)
[2020-09-15] MEDS: MIRTAZAPINE 15 MG TABLET (FP) PO SCH (21:10)
[2020-09-15] MEDS: clonazePAM 0.5 MG TABLET PO PRN (21:10)
[2020-09-15] MEDS: MONTELUKAST NA 10 MG TABLET PO SCH (21:10)
[2020-09-15] MEDS: MELATONIN 5 MG TABLETS PO SCH (21:10)
[2020-09-16] MEDS ORDERED: SODIUM CHLORIDE 100 ML IVPB ONE ×2 (03:13→08:58)
[2020-09-16] MEDS ORDERED: AMPICILLIN NA/SULBACTAM NA 3 GM VIAL ONE ×2 (03:13→08:58)
[2020-09-16] MEDS: AMPICILLIN NA/SULBACTAM NA 3 GM in SODIUM CHLORIDE 100 ML IVPB SCH ×2 (03:19→09:09)
[2020-09-16] MEDS ORDERED: METHADONE HCL 40 MG DISPERSABLE TABLET ONE (05:09)
[2020-09-16] MEDS ORDERED: METHADONE HCL 10 MG TABLET ONE ×2 (05:09→05:12)
[2020-09-16] MEDS: METHADONE 120 MG, METHADONE 20 MG PO SCH (05:25)
[2020-09-16] MEDS: HEPARIN NA (PORCINE) 5,000 UNITS/ML 1ML VIAL SQ SCH ×3 (05:25→21:33)
[2020-09-16] MEDS: SODIUM CHLORIDE NASAL SPRAY 44 ML BOTTLE NS SCH ×3 (05:30→21:35)
[2020-09-16] MEDS: SCOPOLAMINE HYDROBROMIDE 1 PATCH PATCH.TD72 TD SCH (05:35)
[2020-09-16 08:40] LABS: BASO % 0.4 % (0-2.0); EOS % 2.2 % (0-4.5); HEMOGLOBIN 10.4 GM/dL (11.7-16.9); LYMPH % 23.2 % (8-40); MCH 31.4 pg (25.7-33.7); MCHC 33.6 g/dl (32.0-35.9); MEAN CELL VOLUME 93.3 fl (80-96); MEAN PLT VOLUME 9.1 fl (7.5-11.1); MONO % 7.6 % (3.8-10.2); NEUT % 66.6 % (42.8-82.8); PLATELET COUNT 275 K/MM3 (134-434); RBC 3.33 M/mm3 (4.00-5.60); WHITE BLOOD COUNT 8.8 K/mm3 (4.0-10.0)
[2020-09-16] MEDS ORDERED: PT OWN MED DRAWER 7, Y5N ONE (08:59)
[2020-09-16 09:04] LABS: CALCIUM 8.8 mg/dL (8.5-10.1)
[2020-09-16 09:05] LABS: ALBUMIN 2.6 g/dl (3.4-5.0); BLOOD UREA NITROGEN 18.7 mg/dL (7-18); MAGNESIUM 2.5 mg/dL (1.8-2.4)
[2020-09-16 09:08] LABS: CREATININE 0.7 mg/dL (0.55-1.3)
[2020-09-16] MEDS: BICTEGRAV/EMTRICIT/TENOFOV (BIKTARVY) 50-200-25 MG TABLET PO SCH (09:08)
[2020-09-16 09:09] LABS: BILIRUBIN,TOTAL 0.4 mg/dL (0.2-1)
[2020-09-16] MEDS: PANTOPRAZOLE 40 MG TABLET PO SCH (09:09)
[2020-09-16] MEDS: risperiDONE 1 MG TABLET PO SCH (09:09)
[2020-09-16] MEDS: MULTIVITAMINS (DAILY MVI) TABLET (FP) PO SCH (09:09)
[2020-09-16] MEDS: MAGNESIUM OXIDE 400 MG TABLET (FP) PO SCH ×2 (09:09→21:33)
[2020-09-16] MEDS: TAMSULOSIN HCL 0.4 MG CAP PO SCH (09:09)
[2020-09-16 09:10] LABS: TOT PROT 6.8 g/dl (6.4-8.2)
[2020-09-16] MEDS: BUDESONIDE/FORMETEROL FUMARATE 160/4.5 mcg INHALER IH SCH ×2 (09:10→21:35)
[2020-09-16] MEDS: TIOTROPIUM BROMIDE 2.5 MCG (SPIRIVA) RESPIMAT INHALER IH SCH (09:10)
[2020-09-16] MEDS: LYTES/YERBA SANTA 240 ML BOTTLE MM SCH (09:11)
[2020-09-16 10:26] LABS: ANISOCYTOSIS 1+; MACROCYTOSIS 1+; PLATELET ESTIMATE NORMAL
[2020-09-16] MEDS: ALBUTEROL SO4 0.083% IH SOL 2.5 MG/3 ML VIAL.NEB. NEB PRN (11:55)
[2020-09-16] MEDS: AMOX TR/POT CLAV 875MG/125MG TABLETS (FP) PO SCH (17:16)
[2020-09-16] MEDS: clonazePAM 0.5 MG TABLET PO PRN (21:33)
[2020-09-16] MEDS: MONTELUKAST NA 10 MG TABLET PO SCH (21:33)
[2020-09-16] MEDS: MELATONIN 5 MG TABLETS PO SCH (21:33)
[2020-09-16] MEDS: MIRTAZAPINE 15 MG TABLET (FP) PO SCH (21:33)
[2020-09-17] MEDS ORDERED: METHADONE HCL 10 MG TABLET ONE (04:53)
[2020-09-17] MEDS ORDERED: METHADONE HCL 40 MG DISPERSABLE TABLET ONE (04:53)
[2020-09-17] MEDS: METHADONE 120 MG, METHADONE 20 MG PO SCH (05:36)
[2020-09-17] MEDS: HEPARIN NA (PORCINE) 5,000 UNITS/ML 1ML VIAL SQ SCH ×3 (05:37→21:06)
[2020-09-17] MEDS: SODIUM CHLORIDE NASAL SPRAY 44 ML BOTTLE NS SCH ×3 (05:38→21:07)
[2020-09-17 08:11] LABS: BASO % 0.4 % (0-2.0); EOS % 2.3 % (0-4.5); HEMATOCRIT 31.2 % (35.4-49); HEMOGLOBIN 10.4 GM/dL (11.7-16.9); LYMPH % 22.1 % (8-40); MCH 31.2 pg (25.7-33.7); MCHC 33.3 g/dl (32.0-35.9); MEAN CELL VOLUME 93.6 fl (80-96); MEAN PLT VOLUME 9.2 fl (7.5-11.1); MONO % 7.9 % (3.8-10.2); NEUT % 67.3 % (42.8-82.8); PLATELET COUNT 315 K/MM3 (134-434); RBC 3.33 M/mm3 (4.00-5.60); RDW 13.8 % (11.9-15.9); WHITE BLOOD COUNT 9.9 K/mm3 (4.0-10.0)
[2020-09-17 08:21] LABS: ALBUMIN 2.5 g/dl (3.4-5.0); BLOOD UREA NITROGEN 15.4 mg/dL (7-18); MAGNESIUM 2.4 mg/dL (1.8-2.4)
[2020-09-17 08:22] LABS: CALCIUM 8.6 mg/dL (8.5-10.1); CREATININE 0.6 mg/dL (0.55-1.3)
[2020-09-17 08:25] LABS: BILIRUBIN,TOTAL 0.4 mg/dL (0.2-1); TOT PROT 6.9 g/dl (6.4-8.2)
[2020-09-17] MEDS ORDERED: PT OWN MED DRAWER 7, Y5N ONE (09:00)
[2020-09-17] MEDS: TAMSULOSIN HCL 0.4 MG CAP PO SCH (09:03)
[2020-09-17] MEDS: AMOX TR/POT CLAV 875MG/125MG TABLETS (FP) PO SCH ×2 (09:03→17:51)
[2020-09-17] MEDS: MAGNESIUM OXIDE 400 MG TABLET (FP) PO SCH ×2 (09:03→21:07)
[2020-09-17] MEDS: risperiDONE 1 MG TABLET PO SCH (09:03)
[2020-09-17] MEDS: FOLIC ACID 1 MG TABLET (FP) PO SCH (09:03)
[2020-09-17] MEDS: PANTOPRAZOLE 40 MG TABLET PO SCH (09:03)
[2020-09-17] MEDS: MULTIVITAMINS (DAILY MVI) TABLET (FP) PO SCH (09:03)
[2020-09-17] MEDS: BICTEGRAV/EMTRICIT/TENOFOV (BIKTARVY) 50-200-25 MG TABLET PO SCH (09:04)
[2020-09-17] MEDS: BUDESONIDE/FORMETEROL FUMARATE 160/4.5 mcg INHALER IH SCH ×2 (09:05→21:07)
[2020-09-17] MEDS: LYTES/YERBA SANTA 240 ML BOTTLE MM SCH (09:06)
[2020-09-17] MEDS: TIOTROPIUM BROMIDE 2.5 MCG (SPIRIVA) RESPIMAT INHALER IH SCH (09:06)
[2020-09-17 10:13] LABS: ANISOCYTOSIS 0; MACROCYTOSIS 0; PLATELET ESTIMATE NORMAL
[2020-09-17] MEDS: NYSTATIN 100,000 UNIT/GM TOPICAL CREAM 15 GM TUBE TP SCH (17:51)
[2020-09-17] MEDS: LACTOBACILLUS ACIDOPHILUS 1 TABLET PO SCH (18:55)
[2020-09-17] MEDS: MIRTAZAPINE 15 MG TABLET (FP) PO SCH (21:07)
[2020-09-17] MEDS: MELATONIN 5 MG TABLETS PO SCH (21:07)
[2020-09-17] MEDS: MONTELUKAST NA 10 MG TABLET PO SCH (21:07)
[2020-09-17] MEDS: ACETAMINOPHEN 325 MG TABLET (FP) PO PRN (21:08)
[2020-09-17] MEDS: clonazePAM 0.5 MG TABLET PO PRN (21:08)
[2020-09-18] MEDS: NYSTATIN 100,000 UNIT/GM TOPICAL CREAM 15 GM TUBE TP SCH ×4 (00:07→17:59)
[2020-09-18] MEDS ORDERED: METHADONE HCL 10 MG TABLET ONE (05:23)
[2020-09-18] MEDS ORDERED: METHADONE HCL 40 MG DISPERSABLE TABLET ONE (05:23)
[2020-09-18] MEDS: METHADONE 120 MG, METHADONE 20 MG PO SCH (05:28)
[2020-09-18] MEDS: HEPARIN NA (PORCINE) 5,000 UNITS/ML 1ML VIAL SQ SCH ×3 (05:29→21:24)
[2020-09-18] MEDS: SODIUM CHLORIDE NASAL SPRAY 44 ML BOTTLE NS SCH ×3 (05:30→21:24)
[2020-09-18] MEDS: ACETAMINOPHEN 325 MG TABLET (FP) PO PRN (06:39)
[2020-09-18 07:46] LABS: BASO % 0.5 % (0-2.0); EOS % 2.4 % (0-4.5); HEMATOCRIT 31.7 % (35.4-49); HEMOGLOBIN 10.6 GM/dL (11.7-16.9); LYMPH % 26.9 % (8-40); MCH 31.1 pg (25.7-33.7); MCHC 33.5 g/dl (32.0-35.9); MEAN CELL VOLUME 92.8 fl (80-96); MEAN PLT VOLUME 8.9 fl (7.5-11.1); MONO % 8.4 % (3.8-10.2); NEUT % 61.8 % (42.8-82.8); PLATELET COUNT 355 K/MM3 (134-434); RBC 3.41 M/mm3 (4.00-5.60); RDW 13.4 % (11.9-15.9); WHITE BLOOD COUNT 8.2 K/mm3 (4.0-10.0)
[2020-09-18] MEDS ORDERED: PT OWN MED DRAWER 7, Y5N ONE ×4 (08:01→13:46)
[2020-09-18] MEDS: TAMSULOSIN HCL 0.4 MG CAP PO SCH (08:05)
[2020-09-18] MEDS: AMOX TR/POT CLAV 875MG/125MG TABLETS (FP) PO SCH ×2 (08:05→17:59)
[2020-09-18 08:31] LABS: ALBUMIN 2.7 g/dl (3.4-5.0); CALCIUM 8.9 mg/dL (8.5-10.1)
[2020-09-18 08:33] LABS: BLOOD UREA NITROGEN 17.7 mg/dL (7-18); MAGNESIUM 2.5 mg/dL (1.8-2.4)
[2020-09-18 08:36] LABS: BILIRUBIN,TOTAL 0.8 mg/dL (0.2-1); CREATININE 0.7 mg/dL (0.55-1.3); TOT PROT 7.2 g/dl (6.4-8.2)
[2020-09-18] MEDS: TIOTROPIUM BROMIDE 2.5 MCG (SPIRIVA) RESPIMAT INHALER IH SCH (09:03)
[2020-09-18] MEDS: FOLIC ACID 1 MG TABLET (FP) PO SCH (09:04)
[2020-09-18] MEDS: MULTIVITAMINS (DAILY MVI) TABLET (FP) PO SCH (09:04)
[2020-09-18] MEDS: LACTOBACILLUS ACIDOPHILUS 1 TABLET PO SCH (09:04)
[2020-09-18] MEDS: MAGNESIUM OXIDE 400 MG TABLET (FP) PO SCH ×2 (09:04→21:19)
[2020-09-18] MEDS: BUDESONIDE/FORMETEROL FUMARATE 160/4.5 mcg INHALER IH SCH ×2 (09:04→21:25)
[2020-09-18] MEDS: PANTOPRAZOLE 40 MG TABLET PO SCH (09:04)
[2020-09-18] MEDS: risperiDONE 1 MG TABLET PO SCH (09:04)
[2020-09-18] MEDS: LYTES/YERBA SANTA 240 ML BOTTLE MM SCH (09:05)
[2020-09-18] MEDS: BICTEGRAV/EMTRICIT/TENOFOV (BIKTARVY) 50-200-25 MG TABLET PO SCH (09:24)
[2020-09-18] MEDS: LIDOCAINE 5% TOPICAL PATCH TP SCH (16:21)
[2020-09-18] MEDS: LIDOCAINE PATCH REMOVAL MC SCH ×2 (17:16→21:24)
[2020-09-18] MEDS ORDERED: ACETAMINOPHEN 325 MG TABLET (FP) PO PRN (19:38)
[2020-09-18] MEDS: MIRTAZAPINE 15 MG TABLET (FP) PO SCH (21:19)
[2020-09-18] MEDS: MELATONIN 5 MG TABLETS PO SCH (21:19)
[2020-09-18] MEDS: MONTELUKAST NA 10 MG TABLET PO SCH (21:19)
[2020-09-18] MEDS: clonazePAM 0.5 MG TABLET PO PRN (21:25)
[2020-09-19] MEDS: NYSTATIN 100,000 UNIT/GM TOPICAL CREAM 15 GM TUBE TP SCH ×3 (00:59→12:15)
[2020-09-19] MEDS ORDERED: METHADONE HCL 40 MG DISPERSABLE TABLET ONE (05:40)
[2020-09-19] MEDS ORDERED: METHADONE HCL 10 MG TABLET ONE (05:40)
[2020-09-19] MEDS: METHADONE 120 MG, METHADONE 20 MG PO SCH (05:55)
[2020-09-19] MEDS: HEPARIN NA (PORCINE) 5,000 UNITS/ML 1ML VIAL SQ SCH (05:57)
[2020-09-19] MEDS: SODIUM CHLORIDE NASAL SPRAY 44 ML BOTTLE NS SCH (05:58)
[2020-09-19] MEDS ORDERED: PT OWN MED DRAWER 7, Y5N ONE (05:59)
[2020-09-19] MEDS: SCOPOLAMINE HYDROBROMIDE 1 PATCH PATCH.TD72 TD SCH (06:00)
[2020-09-19 08:15] LABS: BASO % 0.4 % (0-2.0); EOS % 2.7 % (0-4.5); HEMATOCRIT 30.5 % (35.4-49); HEMOGLOBIN 10.4 GM/dL (11.7-16.9); LYMPH % 32.4 % (8-40); MCH 31.5 pg (25.7-33.7); MEAN CELL VOLUME 92.8 fl (80-96); MEAN PLT VOLUME 8.9 fl (7.5-11.1); MONO % 10.4 % (3.8-10.2); NEUT % 54.1 % (42.8-82.8); PLATELET COUNT 374 K/MM3 (134-434); RBC 3.29 M/mm3 (4.00-5.60); RDW 13.7 % (11.9-15.9); WHITE BLOOD COUNT 7.1 K/mm3 (4.0-10.0)
[2020-09-19 08:36] LABS: CALCIUM 8.6 mg/dL (8.5-10.1)
[2020-09-19 08:37] LABS: ALBUMIN 2.6 g/dl (3.4-5.0); BLOOD UREA NITROGEN 16.2 mg/dL (7-18); MAGNESIUM 2.4 mg/dL (1.8-2.4)
[2020-09-19 08:40] LABS: CREATININE 0.6 mg/dL (0.55-1.3)
[2020-09-19 08:42] LABS: BILIRUBIN,TOTAL 0.4 mg/dL (0.2-1)
[2020-09-19] MEDS: LIDOCAINE 5% TOPICAL PATCH TP SCH (09:14)
[2020-09-19] MEDS: BICTEGRAV/EMTRICIT/TENOFOV (BIKTARVY) 50-200-25 MG TABLET PO SCH (09:15)
[2020-09-19] MEDS: PANTOPRAZOLE 40 MG TABLET PO SCH (09:15)
[2020-09-19] MEDS: TAMSULOSIN HCL 0.4 MG CAP PO SCH (09:15)
[2020-09-19] MEDS: LACTOBACILLUS ACIDOPHILUS 1 TABLET PO SCH (09:15)
[2020-09-19] MEDS: FOLIC ACID 1 MG TABLET (FP) PO SCH (09:15)
[2020-09-19] MEDS: MULTIVITAMINS (DAILY MVI) TABLET (FP) PO SCH (09:16)
[2020-09-19] MEDS: risperiDONE 1 MG TABLET PO SCH (09:16)
[2020-09-19] MEDS: MAGNESIUM OXIDE 400 MG TABLET (FP) PO SCH (09:16)
[2020-09-19] MEDS: AMOX TR/POT CLAV 875MG/125MG TABLETS (FP) PO SCH (09:16)
[2020-09-19] MEDS: LYTES/YERBA SANTA 240 ML BOTTLE MM SCH (09:17)
[2020-09-19] MEDS: TIOTROPIUM BROMIDE 2.5 MCG (SPIRIVA) RESPIMAT INHALER IH SCH (09:18)
[2020-09-19] MEDS: BUDESONIDE/FORMETEROL FUMARATE 160/4.5 mcg INHALER IH SCH (09:18)
[2020-09-19 15:08] VITALS: BP 101/54; PULSE 62; TEMP 98.4
== END 2020-09-19 15:48 | DRG 720 ==
LOC: JER 21:18 → JERBED 09-08 00:35 → JICU 09-08 05:29 → J8W 09-11 14:19
PROVIDERS: ADMIT Internal Medicine; ATTEND Nurse Practitioner Acute Care
PROC: 05HM33Z Insertion of Infusion Device into Right Internal Jugular Vein, Percutaneous Approach (ICD-10-PCS; principal; 2020-09-07)
PROC: HZ91ZZZ Pharmacotherapy for Substance Abuse Treatment, Methadone Maintenance (ICD-10-PCS; 2020-09-07)
DX: A41.89 Other specified sepsis (principal); R65.21 Severe sepsis with septic shock; J96.01 Acute respiratory failure with hypoxia; J44.9 Chronic obstructive pulmonary disease, unspecified; K21.9 Gastro-esophageal reflux disease without esophagitis; Z21 Asymptomatic human immunodeficiency virus [HIV] infection status; J18.9 Pneumonia, unspecified organism; N40.0 Benign prostatic hyperplasia without lower urinary tract symptoms; E87.2 Acidosis; F11.20 Opioid dependence, uncomplicated; B19.20 Unspecified viral hepatitis C without hepatic coma; E16.2 Hypoglycemia, unspecified; F19.10 Other psychoactive substance abuse, uncomplicated; D64.9 Anemia, unspecified; B35.6 Tinea cruris; R53.1 Weakness; N17.9 Acute kidney failure, unspecified; F41.8 Other specified anxiety disorders
CPT/HCPCS: 36415; 71045-TC-FY; 71260-TC; 80053; 80307; 81003; 82962; 83605; 83690; 83735; 84100; 84484; 85025; 85027; 85610; 85730; 86359; 86360; 86850; 86900; 86901; 87040; 87070; 87077; 87086; 87205; 87899; 93005; 93010; 94640; 97116-GP; 97162-GP; 99285-25; C9803; J0131; J1644; J2794; Q9967; U0003; U0005

== ENCOUNTER 2021-03-21 14:34 | Inpatient (IN) | payer OTHER ==
[2021-03-21 15:47] VITALS: BMI 24.7
[2021-03-21] MEDS ORDERED: MAG HYDROX/AL HYDROX/SIMETH 30 ML UNIT-DOSE CUP PO PRN (16:26)
[2021-03-21] MEDS ORDERED: METHOCARBAMOL 500 MG TABLET PO PRN (16:26)
[2021-03-21] MEDS ORDERED: MENTHOL/PHENOL 1 EACH UD MM PRN (16:26)
[2021-03-21] MEDS ORDERED: MAGNESIUM CITRATE 300 ML BOTTLE PO PRN (16:26)
[2021-03-21] MEDS ORDERED: BISMUTH SUBSALICYLATE 524 MG/30 ML PO PRN (16:26)
[2021-03-21] MEDS ORDERED: ONDANSETRON *ODT* 4 MG TABLET SL PRN (16:26)
[2021-03-21] MEDS ORDERED: IBUPROFEN 400 MG TABLET (FP) PO PRN (16:26)
[2021-03-21] MEDS ORDERED: MAGNESIUM HYDROX 2400MG/30ML ORAL SUSPENSION 30 ML CUP PO PRN (16:26)
[2021-03-21] MEDS ORDERED: ACETAMINOPHEN 325 MG TABLET (FP) PO PRN ×2 (16:26)
[2021-03-21] MEDS: hydrOXYzine PAMOATE 25 MG CAPSULE (FP) PO SCH ×2 (19:07→22:22)
[2021-03-21] MEDS: MELATONIN 5 MG TABLETS PO SCH (22:22)
[2021-03-21] MEDS: THIAMINE HCL 100 MG TABLET (FP) PO SCH (22:22)
[2021-03-22] MEDS: hydrOXYzine PAMOATE 25 MG CAPSULE (FP) PO SCH ×5 (07:12→22:07)
[2021-03-22] MEDS ORDERED: methaDONE HCL 40 MG DISPERSABLE TABLET PO SCH (10:15)
[2021-03-22] MEDS: PRENATAL VITAMINS W/ FOLIC ACID TABLET (FP) PO SCH (10:17)
[2021-03-22 10:30] LABS: HEMATOCRIT 36.9 % (35.4-49); HEMOGLOBIN 12.7 GM/dL (11.7-16.9); MCH 31.4 pg (25.7-33.7); MCHC 34.3 g/dl (32.0-35.9); MEAN CELL VOLUME 91.5 fl (80-96); MEAN PLT VOLUME 8.2 fl (7.5-11.1); PLATELET COUNT 224 10^3/uL (134-434); RBC 4.04 M/mm3 (4.00-5.60); RDW 16.3 % (11.9-15.9); WHITE BLOOD COUNT 5.9 K/mm3 (4.0-10.0)
[2021-03-22] MEDS ORDERED: LORazepam 1 MG TABLET PO PRN (10:30)
[2021-03-22] MEDS ORDERED: methaDONE HCL 10 MG TABLET ONE (11:00)
[2021-03-22] MEDS ORDERED: methaDONE HCL 40 MG DISPERSABLE TABLET ONE (11:00)
[2021-03-22 11:09] LABS: ALBUMIN 3.1 g/dl (3.4-5.0); CALCIUM 9.1 mg/dL (8.5-10.1)
[2021-03-22 11:12] LABS: CREATININE 0.9 mg/dL (0.55-1.3)
[2021-03-22] MEDS: LORazepam 2 MG TABLET PO SCH ×3 (11:12→22:07)
[2021-03-22] MEDS: BICTEGRAV/EMTRICIT/TENOFOV (BIKTARVY) 50-200-25 MG TABLET PO SCH ×2 (11:12→11:20)
[2021-03-22 11:14] LABS: BILIRUBIN,TOTAL 0.3 mg/dL (0.2-1); TOT PROT 7.1 g/dl (6.4-8.2)
[2021-03-22] MEDS: TIOTROPIUM BROMIDE 2.5 MCG (SPIRIVA) RESPIMAT INHALER IH SCH (14:01)
[2021-03-22] MEDS: MELATONIN 5 MG TABLETS PO SCH (22:06)
[2021-03-22] MEDS: TAMSULOSIN HCL 0.4 MG CAP PO SCH (22:06)
[2021-03-22] MEDS: MIRTAZAPINE 15 MG TABLET (FP) PO SCH (22:06)
[2021-03-22] MEDS: MONTELUKAST NA 10 MG TABLET PO SCH (22:06)
[2021-03-22] MEDS: THIAMINE HCL 100 MG TABLET (FP) PO SCH (22:07)
[2021-03-23] MEDS ORDERED: methaDONE HCL 10 MG TABLET ONE (04:08)
[2021-03-23] MEDS ORDERED: methaDONE HCL 40 MG DISPERSABLE TABLET ONE (04:09)
[2021-03-23] MEDS: LORazepam 2 MG TABLET PO SCH ×4 (06:03→22:28)
[2021-03-23] MEDS: hydrOXYzine PAMOATE 25 MG CAPSULE (FP) PO SCH ×5 (06:03→22:29)
[2021-03-23] MEDS: BICTEGRAV/EMTRICIT/TENOFOV (BIKTARVY) 50-200-25 MG TABLET PO SCH (07:04)
[2021-03-23] MEDS: TIOTROPIUM BROMIDE 2.5 MCG (SPIRIVA) RESPIMAT INHALER IH SCH (10:28)
[2021-03-23] MEDS: PRENATAL VITAMINS W/ FOLIC ACID TABLET (FP) PO SCH (10:28)
[2021-03-23] MEDS: PANTOPRAZOLE 40 MG TABLET PO SCH (10:28)
[2021-03-23] MEDS: risperiDONE 1 MG TABLET PO SCH (10:29)
[2021-03-23] MEDS: MONTELUKAST NA 10 MG TABLET PO SCH (22:29)
[2021-03-23] MEDS: THIAMINE HCL 100 MG TABLET (FP) PO SCH (22:29)
[2021-03-23] MEDS: TAMSULOSIN HCL 0.4 MG CAP PO SCH (22:29)
[2021-03-23] MEDS: MELATONIN 5 MG TABLETS PO SCH (22:29)
[2021-03-23] MEDS: MIRTAZAPINE 15 MG TABLET (FP) PO SCH (22:29)
[2021-03-24] MEDS ORDERED: methaDONE HCL 10 MG TABLET ONE (06:23)
[2021-03-24] MEDS ORDERED: methaDONE HCL 40 MG DISPERSABLE TABLET ONE (06:23)
[2021-03-24] MEDS: hydrOXYzine PAMOATE 25 MG CAPSULE (FP) PO SCH ×3 (06:24→15:12)
[2021-03-24] MEDS: LORazepam 1 MG TABLET PO SCH ×2 (06:24→10:20)
[2021-03-24] MEDS: BICTEGRAV/EMTRICIT/TENOFOV (BIKTARVY) 50-200-25 MG TABLET PO SCH (07:38)
[2021-03-24] MEDS: PRENATAL VITAMINS W/ FOLIC ACID TABLET (FP) PO SCH (10:19)
[2021-03-24] MEDS: risperiDONE 1 MG TABLET PO SCH (10:19)
[2021-03-24] MEDS: TIOTROPIUM BROMIDE 2.5 MCG (SPIRIVA) RESPIMAT INHALER IH SCH (10:19)
[2021-03-24] MEDS: PANTOPRAZOLE 40 MG TABLET PO SCH (10:19)
[2021-03-24 13:28] VITALS: BP 123/76; PULSE 85; TEMP 98.8
[2021-03-25] MEDS ORDERED: LORazepam 0.5 MG TABLET PO PRN
[2021-03-25] MEDS ORDERED: LORazepam 0.5 MG TABLET PO SCH (05:00)
[2021-03-26] MEDS ORDERED: LORazepam 0.5 MG TABLET PO ONE (05:00)
== END 2021-03-24 15:57 | disposition left against medical advice (07) | DRG 770 ==
LOC: YASAS 14:34 → Y3N 16:31
PROVIDERS: ADMIT Allergy & Immunology; ATTEND Allergy & Immunology
PROC: HZ2ZZZZ Detoxification Services for Substance Abuse Treatment (ICD-10-PCS; principal; 2021-03-21)
DX: F10.230 Alcohol dependence with withdrawal, uncomplicated (principal); F11.20 Opioid dependence, uncomplicated; F14.20 Cocaine dependence, uncomplicated; F13.10 Sedative, hypnotic or anxiolytic abuse, uncomplicated; F32.A Depression, unspecified; F19.24 Other psychoactive substance dependence with psychoactive substance-induced mood disorder; Z21 Asymptomatic human immunodeficiency virus [HIV] infection status; K21.9 Gastro-esophageal reflux disease without esophagitis; J44.9 Chronic obstructive pulmonary disease, unspecified; N40.0 Benign prostatic hyperplasia without lower urinary tract symptoms; E72.20 Disorder of urea cycle metabolism, unspecified; G47.00 Insomnia, unspecified; Z87.891 Personal history of nicotine dependence; Z96.641 Presence of right artificial hip joint; Z86.19 Personal history of other infectious and parasitic diseases; Z56.0 Unemployment, unspecified
CPT/HCPCS: 36415; 80053; 82140; 85027; 86593; 86780; C9803; J2794; U0003; U0005

== ENCOUNTER 2021-04-26 11:07 | Inpatient (IN) | payer OTHER ==
[2021-04-26] MEDS ORDERED: ONDANSETRON *ODT* 4 MG TABLET SL PRN (11:40)
[2021-04-26] MEDS ORDERED: METHOCARBAMOL 500 MG TABLET PO PRN (11:40)
[2021-04-26] MEDS ORDERED: ACETAMINOPHEN 325 MG TABLET (FP) PO PRN ×2 (11:40)
[2021-04-26] MEDS ORDERED: MAGNESIUM HYDROX 2400MG/30ML ORAL SUSPENSION 30 ML CUP PO PRN (11:40)
[2021-04-26] MEDS ORDERED: IBUPROFEN 400 MG TABLET (FP) PO PRN (11:40)
[2021-04-26] MEDS ORDERED: BISMUTH SUBSALICYLATE 262 MG/15 ML BTL PO PRN (11:40)
[2021-04-26] MEDS ORDERED: MENTHOL/PHENOL 1 EACH UD MM PRN (11:40)
[2021-04-26] MEDS ORDERED: MAGNESIUM CITRATE 300 ML BOTTLE PO PRN (11:40)
[2021-04-26] MEDS ORDERED: MAG HYDROX/AL HYDROX/SIMETH 30 ML UNIT-DOSE CUP PO PRN (11:40)
[2021-04-26] MEDS ORDERED: NICOTINE 10 MG CARTRIDGE (INHALER) IH PRN (11:40)
[2021-04-26] MEDS ORDERED: ALBUTEROL SO4 0.083% IH SOL 2.5 MG/3 ML VIAL.NEB. NEB PRN (11:42)
[2021-04-26 11:46] VITALS: BMI 23.5
[2021-04-26] MEDS ORDERED: methaDONE HCL 10 MG TABLET PO SCH (12:45)
[2021-04-26] MEDS ORDERED: methaDONE HCL 10 MG TABLET ONE (13:41)
[2021-04-26] MEDS ORDERED: methaDONE HCL 40 MG DISPERSABLE TABLET ONE (13:42)
[2021-04-26] MEDS: LACTULOSE 20 GM/30 ML UDC (FOR ORAL USE ONLY) PO SCH ×3 (13:50→21:10)
[2021-04-26] MEDS: hydrOXYzine PAMOATE 25 MG CAPSULE (FP) PO SCH ×3 (13:50→21:11)
[2021-04-26] MEDS: PRENATAL VITAMINS W/ FOLIC ACID TABLET (FP) PO SCH (13:51)
[2021-04-26] MEDS: NYSTATIN 100,000 UNIT/GM TOPICAL CREAM 15 GM TUBE TP SCH ×3 (13:51→23:37)
[2021-04-26 15:14] LABS: HEMATOCRIT 32.3 % (35.4-49); MCH 31.2 pg (25.7-33.7); MEAN CELL VOLUME 91.6 fl (80-96); MEAN PLT VOLUME 8.1 fl (7.5-11.1); PLATELET COUNT 203 10^3/uL (134-434); RBC 3.53 M/mm3 (4.00-5.60); RDW 14.6 % (11.9-15.9); WHITE BLOOD COUNT 6.9 K/mm3 (4.0-10.0)
[2021-04-26 15:23] LABS: CALCIUM 8.7 mg/dL (8.5-10.1)
[2021-04-26 15:24] LABS: ALBUMIN 3.5 g/dl (3.4-5.0); BLOOD UREA NITROGEN 10.3 mg/dL (7-18)
[2021-04-26 15:27] LABS: CREATININE 0.8 mg/dL (0.55-1.3)
[2021-04-26 15:29] LABS: BILIRUBIN,TOTAL 0.9 mg/dL (0.2-1); TOT PROT 7.2 g/dl (6.4-8.2)
[2021-04-26] MEDS: MELATONIN 5 MG TABLETS PO SCH (21:11)
[2021-04-26] MEDS: THIAMINE HCL 100 MG TABLET (FP) PO SCH (21:11)
[2021-04-26] MEDS: TAMSULOSIN HCL 0.4 MG CAP PO SCH (21:11)
[2021-04-26] MEDS: MIRTAZAPINE 15 MG TABLET (FP) PO SCH (21:11)
[2021-04-27] MEDS ORDERED: methaDONE HCL 10 MG TABLET ONE (06:11)
[2021-04-27] MEDS ORDERED: methaDONE HCL 40 MG DISPERSABLE TABLET ONE (06:11)
[2021-04-27] MEDS: hydrOXYzine PAMOATE 25 MG CAPSULE (FP) PO SCH ×5 (06:12→22:15)
[2021-04-27] MEDS: NYSTATIN 100,000 UNIT/GM TOPICAL CREAM 15 GM TUBE TP SCH ×3 (07:04→17:44)
[2021-04-27] MEDS: BICTEGRAV/EMTRICIT/TENOFOV (BIKTARVY) 50-200-25 MG TABLET PO SCH (07:04)
[2021-04-27] MEDS: PRENATAL VITAMINS W/ FOLIC ACID TABLET (FP) PO SCH (10:29)
[2021-04-27] MEDS: TIOTROPIUM BROMIDE 2.5 MCG (SPIRIVA) RESPIMAT INHALER IH SCH (10:29)
[2021-04-27] MEDS: risperiDONE 1 MG TABLET PO SCH (10:29)
[2021-04-27] MEDS: PANTOPRAZOLE 40 MG TABLET PO SCH (10:29)
[2021-04-27] MEDS: LACTOBACILLUS ACIDOPHILUS 1 TABLET PO SCH (10:29)
[2021-04-27] MEDS: LACTULOSE 20 GM/30 ML UDC (FOR ORAL USE ONLY) PO SCH ×4 (10:30→22:14)
[2021-04-27] MEDS ORDERED: diazePAM 5 MG TABLET PO PRN (14:56)
[2021-04-27] MEDS ORDERED: MONTELUKAST NA 10 MG TABLET PO SCH (22:00)
[2021-04-27] MEDS: MELATONIN 5 MG TABLETS PO SCH (22:14)
[2021-04-27] MEDS: MIRTAZAPINE 15 MG TABLET (FP) PO SCH (22:14)
[2021-04-27] MEDS: TAMSULOSIN HCL 0.4 MG CAP PO SCH (22:14)
[2021-04-27] MEDS: THIAMINE HCL 100 MG TABLET (FP) PO SCH (22:14)
[2021-04-28] MEDS: NYSTATIN 100,000 UNIT/GM TOPICAL CREAM 15 GM TUBE TP SCH ×4 (02:12→18:04)
[2021-04-28] MEDS ORDERED: methaDONE HCL 10 MG TABLET ONE (04:23)
[2021-04-28] MEDS ORDERED: methaDONE HCL 40 MG DISPERSABLE TABLET ONE (04:24)
[2021-04-28] MEDS: hydrOXYzine PAMOATE 25 MG CAPSULE (FP) PO SCH ×4 (05:36→18:04)
[2021-04-28] MEDS: BICTEGRAV/EMTRICIT/TENOFOV (BIKTARVY) 50-200-25 MG TABLET PO SCH (07:14)
[2021-04-28] MEDS: PANTOPRAZOLE 40 MG TABLET PO SCH (10:50)
[2021-04-28] MEDS: risperiDONE 1 MG TABLET PO SCH (10:50)
[2021-04-28] MEDS: PRENATAL VITAMINS W/ FOLIC ACID TABLET (FP) PO SCH (10:50)
[2021-04-28] MEDS: TIOTROPIUM BROMIDE 2.5 MCG (SPIRIVA) RESPIMAT INHALER IH SCH (10:51)
[2021-04-28] MEDS: LACTOBACILLUS ACIDOPHILUS 1 TABLET PO SCH (12:17)
[2021-04-28] MEDS: LACTULOSE 20 GM/30 ML UDC (FOR ORAL USE ONLY) PO SCH ×3 (12:17→18:04)
[2021-04-28 20:17] VITALS: BP 115/68; PULSE 64; TEMP 98.6
== END 2021-04-28 20:07 | disposition other institution (70) | DRG 773 ==
LOC: YASAS 11:07 → Y3N 12:25 → UNDOADMIN 12:25
PROVIDERS: ADMIT Allergy & Immunology; ATTEND Allergy & Immunology
PROC: HZ2ZZZZ Detoxification Services for Substance Abuse Treatment (ICD-10-PCS; principal; 2021-04-26)
DX: F10.230 Alcohol dependence with withdrawal, uncomplicated (principal); F11.20 Opioid dependence, uncomplicated; F14.20 Cocaine dependence, uncomplicated; F13.20 Sedative, hypnotic or anxiolytic dependence, uncomplicated; F19.24 Other psychoactive substance dependence with psychoactive substance-induced mood disorder; F25.9 Schizoaffective disorder, unspecified; F41.8 Other specified anxiety disorders; F32.A Depression, unspecified; D64.9 Anemia, unspecified; G47.00 Insomnia, unspecified; J44.9 Chronic obstructive pulmonary disease, unspecified; N40.0 Benign prostatic hyperplasia without lower urinary tract symptoms; K21.9 Gastro-esophageal reflux disease without esophagitis; B18.2 Chronic viral hepatitis C; Z96.641 Presence of right artificial hip joint; Z86.19 Personal history of other infectious and parasitic diseases; Z87.891 Personal history of nicotine dependence
CPT/HCPCS: 36415; 80053; 85027; 86593; 86780; C9803; J2794; U0003; U0005

== ENCOUNTER 2021-04-28 20:20 | Inpatient (IN) | payer OTHER ==
[2021-04-28] MEDS ORDERED: MAGNESIUM CITRATE 300 ML BOTTLE PO PRN (21:36)
[2021-04-28] MEDS ORDERED: MAGNESIUM HYDROX 2400MG/30ML ORAL SUSPENSION 30 ML CUP PO PRN (21:36)
[2021-04-28] MEDS ORDERED: P-EPHED 60MG/TRIPROLIDI 2.5MG TABLET PO PRN (21:36)
[2021-04-28] MEDS ORDERED: LOPERAMIDE HCL 2 MG CAPSULE PO PRN (21:36)
[2021-04-28] MEDS ORDERED: MENTHOL/PHENOL 1 EACH UD MM PRN (21:36)
[2021-04-28] MEDS ORDERED: ACETAMINOPHEN 325 MG TABLET (FP) PO PRN (21:36)
[2021-04-28] MEDS ORDERED: NICOTINE 10 MG CARTRIDGE (INHALER) IH PRN (21:36)
[2021-04-28] MEDS: MELATONIN 5 MG TABLETS PO SCH (22:26)
[2021-04-28] MEDS: BUDESONIDE/FORMETEROL FUMARATE 160/4.5 mcg INHALER IH SCH (22:26)
[2021-04-28] MEDS: THIAMINE HCL 100 MG TABLET (FP) PO SCH (22:26)
[2021-04-28] MEDS: hydrOXYzine PAMOATE 25 MG CAPSULE (FP) PO SCH (22:26)
[2021-04-28] MEDS: LACTULOSE 20 GM/30 ML UDC (FOR ORAL USE ONLY) PO SCH (22:26)
[2021-04-29] MEDS ORDERED: methaDONE HCL 40 MG DISPERSABLE TABLET ONE (05:39)
[2021-04-29] MEDS ORDERED: methaDONE HCL 10 MG TABLET ONE (05:39)
[2021-04-29] MEDS ORDERED: methaDONE HCL 40 MG DISPERSABLE TABLET PO SCH (06:00)
[2021-04-29] MEDS: hydrOXYzine PAMOATE 25 MG CAPSULE (FP) PO SCH ×5 (06:01→21:31)
[2021-04-29] MEDS: BICTEGRAV/EMTRICIT/TENOFOV (BIKTARVY) 50-200-25 MG TABLET PO SCH (07:38)
[2021-04-29] MEDS: PANTOPRAZOLE 40 MG TABLET PO SCH (09:46)
[2021-04-29] MEDS: PRENATAL VITAMINS W/ FOLIC ACID TABLET (FP) PO SCH (09:46)
[2021-04-29] MEDS: NICOTINE 7 MG/24 HOURS TOPICAL PATCH TD SCH (09:47)
[2021-04-29] MEDS: LACTULOSE 20 GM/30 ML UDC (FOR ORAL USE ONLY) PO SCH ×4 (09:47→21:28)
[2021-04-29] MEDS: BUDESONIDE/FORMETEROL FUMARATE 160/4.5 mcg INHALER IH SCH ×2 (09:47→21:30)
[2021-04-29] MEDS: THIAMINE HCL 100 MG TABLET (FP) PO SCH (21:27)
[2021-04-29] MEDS: MELATONIN 5 MG TABLETS PO SCH (21:27)
[2021-04-30] MEDS ORDERED: methaDONE HCL 40 MG DISPERSABLE TABLET ONE (02:48)
[2021-04-30] MEDS ORDERED: methaDONE HCL 10 MG TABLET ONE (02:48)
[2021-04-30] MEDS: hydrOXYzine PAMOATE 25 MG CAPSULE (FP) PO SCH ×5 (06:11→21:27)
[2021-04-30] MEDS: BICTEGRAV/EMTRICIT/TENOFOV (BIKTARVY) 50-200-25 MG TABLET PO SCH (07:40)
[2021-04-30] MEDS: PRENATAL VITAMINS W/ FOLIC ACID TABLET (FP) PO SCH (09:41)
[2021-04-30] MEDS: BUDESONIDE/FORMETEROL FUMARATE 160/4.5 mcg INHALER IH SCH ×2 (09:41→21:26)
[2021-04-30] MEDS: LACTULOSE 20 GM/30 ML UDC (FOR ORAL USE ONLY) PO SCH ×4 (09:41→21:27)
[2021-04-30] MEDS: PANTOPRAZOLE 40 MG TABLET PO SCH (09:41)
[2021-04-30] MEDS: NICOTINE 7 MG/24 HOURS TOPICAL PATCH TD SCH (09:42)
[2021-04-30] MEDS: THIAMINE HCL 100 MG TABLET (FP) PO SCH (21:27)
[2021-04-30] MEDS: MELATONIN 5 MG TABLETS PO SCH (21:27)
[2021-05-01] MEDS ORDERED: methaDONE HCL 10 MG TABLET ONE (03:43)
[2021-05-01] MEDS ORDERED: methaDONE HCL 40 MG DISPERSABLE TABLET ONE (03:43)
[2021-05-01] MEDS: hydrOXYzine PAMOATE 25 MG CAPSULE (FP) PO SCH ×5 (06:22→21:17)
[2021-05-01] MEDS: BICTEGRAV/EMTRICIT/TENOFOV (BIKTARVY) 50-200-25 MG TABLET PO SCH (07:00)
[2021-05-01] MEDS: BUDESONIDE/FORMETEROL FUMARATE 160/4.5 mcg INHALER IH SCH ×2 (09:24→21:17)
[2021-05-01] MEDS: PRENATAL VITAMINS W/ FOLIC ACID TABLET (FP) PO SCH (09:25)
[2021-05-01] MEDS: LACTULOSE 20 GM/30 ML UDC (FOR ORAL USE ONLY) PO SCH ×2 (09:25→21:17)
[2021-05-01] MEDS: PANTOPRAZOLE 40 MG TABLET PO SCH (09:25)
[2021-05-01] MEDS: NICOTINE 7 MG/24 HOURS TOPICAL PATCH TD SCH (09:25)
[2021-05-01] MEDS: THIAMINE HCL 100 MG TABLET (FP) PO SCH (21:17)
[2021-05-01] MEDS: MELATONIN 5 MG TABLETS PO SCH (21:17)
[2021-05-02] MEDS ORDERED: methaDONE HCL 10 MG TABLET ONE (03:49)
[2021-05-02] MEDS ORDERED: methaDONE HCL 40 MG DISPERSABLE TABLET ONE (03:50)
[2021-05-02] MEDS: hydrOXYzine PAMOATE 25 MG CAPSULE (FP) PO SCH ×5 (06:07→21:44)
[2021-05-02] MEDS: BICTEGRAV/EMTRICIT/TENOFOV (BIKTARVY) 50-200-25 MG TABLET PO SCH (07:01)
[2021-05-02] MEDS: PRENATAL VITAMINS W/ FOLIC ACID TABLET (FP) PO SCH (09:47)
[2021-05-02] MEDS: PANTOPRAZOLE 40 MG TABLET PO SCH (09:47)
[2021-05-02] MEDS: LACTULOSE 20 GM/30 ML UDC (FOR ORAL USE ONLY) PO SCH ×2 (09:47→21:46)
[2021-05-02] MEDS: NICOTINE 7 MG/24 HOURS TOPICAL PATCH TD SCH (09:48)
[2021-05-02] MEDS: TIOTROPIUM BROMIDE 2.5 MCG (SPIRIVA) RESPIMAT INHALER IH SCH (10:35)
[2021-05-02] MEDS: BUDESONIDE/FORMETEROL FUMARATE 160/4.5 mcg INHALER IH SCH ×2 (10:35→22:23)
[2021-05-02] MEDS: SUVOREXANT 5 MG TABLET PO PRN (21:44)
[2021-05-02] MEDS: TAMSULOSIN HCL 0.4 MG CAP PO SCH (21:44)
[2021-05-02] MEDS: THIAMINE HCL 100 MG TABLET (FP) PO SCH (21:44)
[2021-05-02] MEDS: MIRTAZAPINE 15 MG TABLET (FP) PO SCH (21:44)
[2021-05-02] MEDS: MONTELUKAST NA 10 MG TABLET PO SCH (22:22)
[2021-05-03] MEDS ORDERED: methaDONE HCL 40 MG DISPERSABLE TABLET ONE (04:09)
[2021-05-03] MEDS ORDERED: methaDONE HCL 10 MG TABLET ONE (04:09)
[2021-05-03] MEDS: hydrOXYzine PAMOATE 25 MG CAPSULE (FP) PO SCH ×5 (06:28→21:23)
[2021-05-03] MEDS: BUDESONIDE/FORMETEROL FUMARATE 160/4.5 mcg INHALER IH SCH ×2 (09:57→21:24)
[2021-05-03] MEDS: TIOTROPIUM BROMIDE 2.5 MCG (SPIRIVA) RESPIMAT INHALER IH SCH (09:57)
[2021-05-03] MEDS: NICOTINE 7 MG/24 HOURS TOPICAL PATCH TD SCH (09:57)
[2021-05-03] MEDS: PANTOPRAZOLE 40 MG TABLET PO SCH (09:58)
[2021-05-03] MEDS: PRENATAL VITAMINS W/ FOLIC ACID TABLET (FP) PO SCH (09:59)
[2021-05-03] MEDS: BICTEGRAV/EMTRICIT/TENOFOV (BIKTARVY) 50-200-25 MG TABLET PO SCH (10:00)
[2021-05-03] MEDS ORDERED: risperiDONE 1 MG TABLET PO SCH (10:00)
[2021-05-03] MEDS: TAMSULOSIN HCL 0.4 MG CAP PO SCH (21:22)
[2021-05-03] MEDS: THIAMINE HCL 100 MG TABLET (FP) PO SCH (21:23)
[2021-05-03] MEDS: MIRTAZAPINE 15 MG TABLET (FP) PO SCH (21:23)
[2021-05-03] MEDS: SUVOREXANT 5 MG TABLET PO PRN (21:27)
[2021-05-03] MEDS: MONTELUKAST NA 10 MG TABLET PO SCH (23:45)
[2021-05-04] MEDS: hydrOXYzine PAMOATE 25 MG CAPSULE (FP) PO SCH ×5 (06:09→21:46)
[2021-05-04] MEDS: BICTEGRAV/EMTRICIT/TENOFOV (BIKTARVY) 50-200-25 MG TABLET PO SCH (07:04)
[2021-05-04] MEDS: PANTOPRAZOLE 40 MG TABLET PO SCH (09:51)
[2021-05-04] MEDS: BUDESONIDE/FORMETEROL FUMARATE 160/4.5 mcg INHALER IH SCH ×2 (09:52→21:41)
[2021-05-04] MEDS: PRENATAL VITAMINS W/ FOLIC ACID TABLET (FP) PO SCH (09:52)
[2021-05-04] MEDS: TIOTROPIUM BROMIDE 2.5 MCG (SPIRIVA) RESPIMAT INHALER IH SCH (09:52)
[2021-05-04] MEDS: NICOTINE 7 MG/24 HOURS TOPICAL PATCH TD SCH (09:52)
[2021-05-04] MEDS ORDERED: methaDONE HCL 40 MG DISPERSABLE TABLET ONE (09:54)
[2021-05-04] MEDS ORDERED: methaDONE HCL 10 MG TABLET ONE (09:54)
[2021-05-04] MEDS: ERGOCALCIFEROL (VIT D2) 50,000 UNIT (1.25 MG) CAPSULE PO SCH (14:26)
[2021-05-04] MEDS: MIRTAZAPINE 15 MG TABLET (FP) PO SCH (21:41)
[2021-05-04] MEDS: TAMSULOSIN HCL 0.4 MG CAP PO SCH (21:42)
[2021-05-04] MEDS: THIAMINE HCL 100 MG TABLET (FP) PO SCH (21:42)
[2021-05-04] MEDS: SUVOREXANT 5 MG TABLET PO PRN (21:47)
[2021-05-04] MEDS: risperiDONE 1 MG TABLET PO SCH (22:07)
[2021-05-04] MEDS: MONTELUKAST NA 10 MG TABLET PO SCH (22:08)
[2021-05-05] MEDS: hydrOXYzine PAMOATE 25 MG CAPSULE (FP) PO SCH ×5 (06:18→22:10)
[2021-05-05] MEDS: BICTEGRAV/EMTRICIT/TENOFOV (BIKTARVY) 50-200-25 MG TABLET PO SCH (07:14)
[2021-05-05] MEDS ORDERED: methaDONE HCL 10 MG TABLET ONE (09:01)
[2021-05-05] MEDS ORDERED: methaDONE HCL 40 MG DISPERSABLE TABLET ONE (09:01)
[2021-05-05] MEDS: TIOTROPIUM BROMIDE 2.5 MCG (SPIRIVA) RESPIMAT INHALER IH SCH (10:00)
[2021-05-05] MEDS: PANTOPRAZOLE 40 MG TABLET PO SCH (10:00)
[2021-05-05] MEDS: PRENATAL VITAMINS W/ FOLIC ACID TABLET (FP) PO SCH (10:00)
[2021-05-05] MEDS: BUDESONIDE/FORMETEROL FUMARATE 160/4.5 mcg INHALER IH SCH ×2 (10:00→21:37)
[2021-05-05] MEDS: NICOTINE 7 MG/24 HOURS TOPICAL PATCH TD SCH (10:01)
[2021-05-05] MEDS: MIRTAZAPINE 15 MG TABLET (FP) PO SCH (21:38)
[2021-05-05] MEDS: MONTELUKAST NA 10 MG TABLET PO SCH (21:38)
[2021-05-05] MEDS: risperiDONE 1 MG TABLET PO SCH (21:38)
[2021-05-05] MEDS: THIAMINE HCL 100 MG TABLET (FP) PO SCH (21:38)
[2021-05-05] MEDS: TAMSULOSIN HCL 0.4 MG CAP PO SCH (21:38)
[2021-05-05] MEDS: SUVOREXANT 5 MG TABLET PO PRN (21:39)
[2021-05-06] MEDS: hydrOXYzine PAMOATE 25 MG CAPSULE (FP) PO SCH ×5 (06:47→21:07)
[2021-05-06] MEDS: BICTEGRAV/EMTRICIT/TENOFOV (BIKTARVY) 50-200-25 MG TABLET PO SCH (07:02)
[2021-05-06] MEDS ORDERED: methaDONE HCL 40 MG DISPERSABLE TABLET ONE (09:20)
[2021-05-06] MEDS ORDERED: methaDONE HCL 10 MG TABLET ONE (09:20)
[2021-05-06] MEDS: PRENATAL VITAMINS W/ FOLIC ACID TABLET (FP) PO SCH (10:15)
[2021-05-06] MEDS: PANTOPRAZOLE 40 MG TABLET PO SCH (10:15)
[2021-05-06] MEDS: BUDESONIDE/FORMETEROL FUMARATE 160/4.5 mcg INHALER IH SCH ×2 (10:16→21:07)
[2021-05-06] MEDS: NICOTINE 7 MG/24 HOURS TOPICAL PATCH TD SCH (10:16)
[2021-05-06] MEDS: TIOTROPIUM BROMIDE 2.5 MCG (SPIRIVA) RESPIMAT INHALER IH SCH (10:16)
[2021-05-06] MEDS: MAG HYDROX/AL HYDROX/SIMETH 30 ML UNIT-DOSE CUP PO PRN (12:27)
[2021-05-06] MEDS: MIRTAZAPINE 15 MG TABLET (FP) PO SCH (21:07)
[2021-05-06] MEDS: MONTELUKAST NA 10 MG TABLET PO SCH (21:07)
[2021-05-06] MEDS: THIAMINE HCL 100 MG TABLET (FP) PO SCH (21:07)
[2021-05-06] MEDS: risperiDONE 1 MG TABLET PO SCH (21:07)
[2021-05-06] MEDS: TAMSULOSIN HCL 0.4 MG CAP PO SCH (21:07)
[2021-05-06] MEDS: SUVOREXANT 5 MG TABLET PO PRN (21:08)
[2021-05-07] MEDS: hydrOXYzine PAMOATE 25 MG CAPSULE (FP) PO SCH ×5 (06:22→21:21)
[2021-05-07] MEDS: BICTEGRAV/EMTRICIT/TENOFOV (BIKTARVY) 50-200-25 MG TABLET PO SCH (07:04)
[2021-05-07] MEDS ORDERED: methaDONE HCL 10 MG TABLET ONE (08:42)
[2021-05-07] MEDS ORDERED: methaDONE HCL 40 MG DISPERSABLE TABLET ONE (08:43)
[2021-05-07] MEDS: TIOTROPIUM BROMIDE 2.5 MCG (SPIRIVA) RESPIMAT INHALER IH SCH (09:31)
[2021-05-07] MEDS: BUDESONIDE/FORMETEROL FUMARATE 160/4.5 mcg INHALER IH SCH ×2 (09:31→21:21)
[2021-05-07] MEDS: PANTOPRAZOLE 40 MG TABLET PO SCH (09:32)
[2021-05-07] MEDS: PRENATAL VITAMINS W/ FOLIC ACID TABLET (FP) PO SCH (09:32)
[2021-05-07] MEDS: NICOTINE 7 MG/24 HOURS TOPICAL PATCH TD SCH (09:34)
[2021-05-07] MEDS: SUVOREXANT 5 MG TABLET PO PRN (21:20)
[2021-05-07] MEDS: MONTELUKAST NA 10 MG TABLET PO SCH (21:20)
[2021-05-07] MEDS: IBUPROFEN 400 MG TABLET (FP) PO PRN (21:21)
[2021-05-07] MEDS: MIRTAZAPINE 15 MG TABLET (FP) PO SCH (21:21)
[2021-05-07] MEDS: TAMSULOSIN HCL 0.4 MG CAP PO SCH (21:21)
[2021-05-07] MEDS: risperiDONE 1 MG TABLET PO SCH (21:21)
[2021-05-07] MEDS: THIAMINE HCL 100 MG TABLET (FP) PO SCH (21:21)
[2021-05-08] MEDS: hydrOXYzine PAMOATE 25 MG CAPSULE (FP) PO SCH ×5 (06:19→21:08)
[2021-05-08] MEDS: BICTEGRAV/EMTRICIT/TENOFOV (BIKTARVY) 50-200-25 MG TABLET PO SCH (08:03)
[2021-05-08] MEDS ORDERED: methaDONE HCL 10 MG TABLET ONE (09:25)
[2021-05-08] MEDS ORDERED: methaDONE HCL 40 MG DISPERSABLE TABLET ONE (09:25)
[2021-05-08] MEDS: PANTOPRAZOLE 40 MG TABLET PO SCH (09:57)
[2021-05-08] MEDS: PRENATAL VITAMINS W/ FOLIC ACID TABLET (FP) PO SCH (09:57)
[2021-05-08] MEDS: BUDESONIDE/FORMETEROL FUMARATE 160/4.5 mcg INHALER IH SCH ×2 (09:58→21:08)
[2021-05-08] MEDS: TIOTROPIUM BROMIDE 2.5 MCG (SPIRIVA) RESPIMAT INHALER IH SCH (09:58)
[2021-05-08] MEDS: NICOTINE 7 MG/24 HOURS TOPICAL PATCH TD SCH (09:59)
[2021-05-08] MEDS: TOLNAFTATE 1% CREAM 15 GM TUBE TP SCH ×2 (12:11→21:10)
[2021-05-08] MEDS: IBUPROFEN 400 MG TABLET (FP) PO PRN (12:40)
[2021-05-08] MEDS: MIRTAZAPINE 15 MG TABLET (FP) PO SCH (21:08)
[2021-05-08] MEDS: TAMSULOSIN HCL 0.4 MG CAP PO SCH (21:08)
[2021-05-08] MEDS: risperiDONE 1 MG TABLET PO SCH (21:08)
[2021-05-08] MEDS: MONTELUKAST NA 10 MG TABLET PO SCH (21:08)
[2021-05-08] MEDS: THIAMINE HCL 100 MG TABLET (FP) PO SCH (22:03)
[2021-05-09] MEDS: hydrOXYzine PAMOATE 25 MG CAPSULE (FP) PO SCH ×5 (06:35→21:08)
[2021-05-09] MEDS: BICTEGRAV/EMTRICIT/TENOFOV (BIKTARVY) 50-200-25 MG TABLET PO SCH (07:05)
[2021-05-09] MEDS ORDERED: methaDONE HCL 10 MG TABLET ONE (09:15)
[2021-05-09] MEDS ORDERED: methaDONE HCL 40 MG DISPERSABLE TABLET ONE (09:16)
[2021-05-09] MEDS: PRENATAL VITAMINS W/ FOLIC ACID TABLET (FP) PO SCH (10:08)
[2021-05-09] MEDS: PANTOPRAZOLE 40 MG TABLET PO SCH (10:08)
[2021-05-09] MEDS: TIOTROPIUM BROMIDE 2.5 MCG (SPIRIVA) RESPIMAT INHALER IH SCH (10:09)
[2021-05-09] MEDS: NICOTINE 7 MG/24 HOURS TOPICAL PATCH TD SCH (10:09)
[2021-05-09] MEDS: TOLNAFTATE 1% CREAM 15 GM TUBE TP SCH ×2 (10:09→21:10)
[2021-05-09] MEDS: BUDESONIDE/FORMETEROL FUMARATE 160/4.5 mcg INHALER IH SCH ×2 (10:09→21:10)
[2021-05-09] MEDS: SUVOREXANT 5 MG TABLET PO PRN (21:07)
[2021-05-09] MEDS: TAMSULOSIN HCL 0.4 MG CAP PO SCH (21:08)
[2021-05-09] MEDS: THIAMINE HCL 100 MG TABLET (FP) PO SCH (21:08)
[2021-05-09] MEDS: MIRTAZAPINE 15 MG TABLET (FP) PO SCH (21:08)
[2021-05-09] MEDS: risperiDONE 1 MG TABLET PO SCH (21:08)
[2021-05-09] MEDS: MONTELUKAST NA 10 MG TABLET PO SCH (21:10)
[2021-05-10] MEDS: hydrOXYzine PAMOATE 25 MG CAPSULE (FP) PO SCH ×3 (06:22→13:41)
[2021-05-10] MEDS: BICTEGRAV/EMTRICIT/TENOFOV (BIKTARVY) 50-200-25 MG TABLET PO SCH (07:19)
[2021-05-10] MEDS ORDERED: methaDONE HCL 10 MG TABLET PO ONE (09:14)
[2021-05-10] MEDS ORDERED: methaDONE HCL 10 MG TABLET ONE (09:34)
[2021-05-10] MEDS ORDERED: methaDONE HCL 40 MG DISPERSABLE TABLET ONE (09:35)
[2021-05-10] MEDS: PRENATAL VITAMINS W/ FOLIC ACID TABLET (FP) PO SCH (09:49)
[2021-05-10] MEDS: PANTOPRAZOLE 40 MG TABLET PO SCH (09:49)
[2021-05-10] MEDS: NICOTINE 7 MG/24 HOURS TOPICAL PATCH TD SCH (09:49)
[2021-05-10] MEDS: TIOTROPIUM BROMIDE 2.5 MCG (SPIRIVA) RESPIMAT INHALER IH SCH (09:50)
[2021-05-10] MEDS: BUDESONIDE/FORMETEROL FUMARATE 160/4.5 mcg INHALER IH SCH ×2 (09:50→21:29)
[2021-05-10] MEDS: TOLNAFTATE 1% CREAM 15 GM TUBE TP SCH ×2 (09:51→21:29)
[2021-05-10] MEDS: TETRAHYDROZOLINE HCL EYE DROPS OD PRN ×2 (10:23→16:48)
[2021-05-10] MEDS: THIAMINE HCL 100 MG TABLET (FP) PO SCH (21:24)
[2021-05-10] MEDS: TAMSULOSIN HCL 0.4 MG CAP PO SCH (21:24)
[2021-05-10] MEDS: MIRTAZAPINE 15 MG TABLET (FP) PO SCH (21:25)
[2021-05-10] MEDS: risperiDONE 1 MG TABLET PO SCH (21:25)
[2021-05-10] MEDS: SUVOREXANT 5 MG TABLET PO PRN (21:27)
[2021-05-10] MEDS: MONTELUKAST NA 10 MG TABLET PO SCH (21:28)
[2021-05-10] MEDS: hydrOXYzine PAMOATE 25 MG CAPSULE (FP) PO PRN (21:30)
[2021-05-11] MEDS: BICTEGRAV/EMTRICIT/TENOFOV (BIKTARVY) 50-200-25 MG TABLET PO SCH (07:08)
[2021-05-11] MEDS ORDERED: methaDONE HCL 10 MG TABLET ONE (08:50)
[2021-05-11] MEDS ORDERED: methaDONE HCL 40 MG DISPERSABLE TABLET ONE (08:51)
[2021-05-11] MEDS: PANTOPRAZOLE 40 MG TABLET PO SCH (09:33)
[2021-05-11] MEDS: ERGOCALCIFEROL (VIT D2) 50,000 UNIT (1.25 MG) CAPSULE PO SCH (09:34)
[2021-05-11] MEDS: PRENATAL VITAMINS W/ FOLIC ACID TABLET (FP) PO SCH (09:34)
[2021-05-11] MEDS: NICOTINE 7 MG/24 HOURS TOPICAL PATCH TD SCH (09:34)
[2021-05-11] MEDS: TIOTROPIUM BROMIDE 2.5 MCG (SPIRIVA) RESPIMAT INHALER IH SCH (09:35)
[2021-05-11] MEDS: BUDESONIDE/FORMETEROL FUMARATE 160/4.5 mcg INHALER IH SCH ×2 (09:35→21:16)
[2021-05-11] MEDS: TOLNAFTATE 1% CREAM 15 GM TUBE TP SCH ×2 (09:36→21:17)
[2021-05-11] MEDS: TETRAHYDROZOLINE HCL EYE DROPS OD PRN (13:40)
[2021-05-11] MEDS: MONTELUKAST NA 10 MG TABLET PO SCH (21:16)
[2021-05-11] MEDS: TAMSULOSIN HCL 0.4 MG CAP PO SCH (21:16)
[2021-05-11] MEDS: risperiDONE 1 MG TABLET PO SCH (21:16)
[2021-05-11] MEDS: THIAMINE HCL 100 MG TABLET (FP) PO SCH (21:16)
[2021-05-11] MEDS: MIRTAZAPINE 15 MG TABLET (FP) PO SCH (21:16)
[2021-05-11] MEDS: SUVOREXANT 5 MG TABLET PO PRN (21:18)
[2021-05-12] MEDS: hydrOXYzine PAMOATE 25 MG CAPSULE (FP) PO PRN (06:38)
[2021-05-12] MEDS: BICTEGRAV/EMTRICIT/TENOFOV (BIKTARVY) 50-200-25 MG TABLET PO SCH (07:03)
[2021-05-12] MEDS ORDERED: methaDONE HCL 40 MG DISPERSABLE TABLET ONE (09:32)
[2021-05-12] MEDS ORDERED: methaDONE HCL 10 MG TABLET ONE (09:32)
[2021-05-12] MEDS: TOLNAFTATE 1% CREAM 15 GM TUBE TP SCH ×2 (10:06→21:23)
[2021-05-12] MEDS: BUDESONIDE/FORMETEROL FUMARATE 160/4.5 mcg INHALER IH SCH ×2 (10:06→21:23)
[2021-05-12] MEDS: TETRAHYDROZOLINE HCL EYE DROPS OD PRN (10:07)
[2021-05-12] MEDS: TIOTROPIUM BROMIDE 2.5 MCG (SPIRIVA) RESPIMAT INHALER IH SCH (10:07)
[2021-05-12] MEDS: IBUPROFEN 400 MG TABLET (FP) PO PRN ×2 (10:08→21:25)
[2021-05-12] MEDS: PANTOPRAZOLE 40 MG TABLET PO SCH (10:08)
[2021-05-12] MEDS: PRENATAL VITAMINS W/ FOLIC ACID TABLET (FP) PO SCH (10:08)
[2021-05-12] MEDS: NICOTINE 7 MG/24 HOURS TOPICAL PATCH TD SCH (10:09)
[2021-05-12] MEDS: THIAMINE HCL 100 MG TABLET (FP) PO SCH (21:23)
[2021-05-12] MEDS: risperiDONE 1 MG TABLET PO SCH (21:23)
[2021-05-12] MEDS: MONTELUKAST NA 10 MG TABLET PO SCH (21:23)
[2021-05-12] MEDS: MIRTAZAPINE 15 MG TABLET (FP) PO SCH (21:23)
[2021-05-12] MEDS: SUVOREXANT 5 MG TABLET PO PRN (21:23)
[2021-05-12] MEDS: TAMSULOSIN HCL 0.4 MG CAP PO SCH (21:23)
[2021-05-13] MEDS: BICTEGRAV/EMTRICIT/TENOFOV (BIKTARVY) 50-200-25 MG TABLET PO SCH (07:28)
[2021-05-13] MEDS ORDERED: methaDONE HCL 10 MG TABLET ONE (09:00)
[2021-05-13] MEDS ORDERED: methaDONE HCL 40 MG DISPERSABLE TABLET ONE (09:01)
[2021-05-13] MEDS ORDERED: ASPIRIN 81 MG CHEWABLE TABLETS PO ONE (10:30)
[2021-05-13] MEDS: PANTOPRAZOLE 40 MG TABLET PO SCH (10:43)
[2021-05-13] MEDS: TIOTROPIUM BROMIDE 2.5 MCG (SPIRIVA) RESPIMAT INHALER IH SCH (10:43)
[2021-05-13] MEDS: BUDESONIDE/FORMETEROL FUMARATE 160/4.5 mcg INHALER IH SCH ×2 (10:43→21:19)
[2021-05-13] MEDS: NICOTINE 7 MG/24 HOURS TOPICAL PATCH TD SCH (10:43)
[2021-05-13] MEDS: PRENATAL VITAMINS W/ FOLIC ACID TABLET (FP) PO SCH (10:43)
[2021-05-13] MEDS: TOLNAFTATE 1% CREAM 15 GM TUBE TP SCH ×2 (10:43→21:23)
[2021-05-13] MEDS ORDERED: methaDONE HCL 10 MG TABLET PO ONE (15:15)
[2021-05-13] MEDS: THIAMINE HCL 100 MG TABLET (FP) PO SCH (21:20)
[2021-05-13] MEDS: MIRTAZAPINE 15 MG TABLET (FP) PO SCH (21:20)
[2021-05-13] MEDS: TAMSULOSIN HCL 0.4 MG CAP PO SCH (21:20)
[2021-05-13] MEDS: risperiDONE 1 MG TABLET PO SCH (21:20)
[2021-05-13] MEDS: SUVOREXANT 5 MG TABLET PO PRN (21:21)
[2021-05-13] MEDS: MONTELUKAST NA 10 MG TABLET PO SCH (21:23)
[2021-05-13] MEDS: IBUPROFEN 400 MG TABLET (FP) PO PRN (21:23)
[2021-05-14] MEDS: BICTEGRAV/EMTRICIT/TENOFOV (BIKTARVY) 50-200-25 MG TABLET PO SCH (07:01)
[2021-05-14] MEDS ORDERED: methaDONE HCL 40 MG DISPERSABLE TABLET ONE (10:04)
[2021-05-14] MEDS ORDERED: methaDONE HCL 10 MG TABLET ONE (10:04)
[2021-05-14] MEDS: NICOTINE 7 MG/24 HOURS TOPICAL PATCH TD SCH (10:07)
[2021-05-14] MEDS: PRENATAL VITAMINS W/ FOLIC ACID TABLET (FP) PO SCH (10:07)
[2021-05-14] MEDS: AZITHROMYCIN 250 MG TABLET PO SCH (10:08)
[2021-05-14] MEDS: PANTOPRAZOLE 40 MG TABLET PO SCH (10:09)
[2021-05-14] MEDS: BUDESONIDE/FORMETEROL FUMARATE 160/4.5 mcg INHALER IH SCH ×2 (10:09→21:41)
[2021-05-14] MEDS: TIOTROPIUM BROMIDE 2.5 MCG (SPIRIVA) RESPIMAT INHALER IH SCH (10:09)
[2021-05-14] MEDS: TOLNAFTATE 1% CREAM 15 GM TUBE TP SCH ×2 (10:10→23:28)
[2021-05-14] MEDS: IBUPROFEN 400 MG TABLET (FP) PO PRN (12:53)
[2021-05-14] MEDS: TAMSULOSIN HCL 0.4 MG CAP PO SCH (21:42)
[2021-05-14] MEDS: risperiDONE 1 MG TABLET PO SCH (21:42)
[2021-05-14] MEDS: MIRTAZAPINE 15 MG TABLET (FP) PO SCH (21:42)
[2021-05-14] MEDS: MONTELUKAST NA 10 MG TABLET PO SCH (21:42)
[2021-05-14] MEDS: THIAMINE HCL 100 MG TABLET (FP) PO SCH (21:42)
[2021-05-14] MEDS: SUVOREXANT 5 MG TABLET PO PRN (21:43)
[2021-05-15] MEDS: BICTEGRAV/EMTRICIT/TENOFOV (BIKTARVY) 50-200-25 MG TABLET PO SCH (07:00)
[2021-05-15] MEDS ORDERED: methaDONE HCL 40 MG DISPERSABLE TABLET ONE (08:57)
[2021-05-15] MEDS ORDERED: methaDONE HCL 10 MG TABLET ONE (08:57)
[2021-05-15] MEDS: PANTOPRAZOLE 40 MG TABLET PO SCH (09:56)
[2021-05-15] MEDS: PRENATAL VITAMINS W/ FOLIC ACID TABLET (FP) PO SCH (09:56)
[2021-05-15] MEDS: AZITHROMYCIN 250 MG TABLET PO SCH (09:59)
[2021-05-15] MEDS: BUDESONIDE/FORMETEROL FUMARATE 160/4.5 mcg INHALER IH SCH ×2 (10:00→21:18)
[2021-05-15] MEDS: TIOTROPIUM BROMIDE 2.5 MCG (SPIRIVA) RESPIMAT INHALER IH SCH (10:00)
[2021-05-15] MEDS: NICOTINE 7 MG/24 HOURS TOPICAL PATCH TD SCH (10:00)
[2021-05-15] MEDS: TOLNAFTATE 1% CREAM 15 GM TUBE TP SCH ×2 (10:00→23:29)
[2021-05-15] MEDS: guaiFENesin 200 MG/10 ML 10 ML UNIT-DOSE CUPS PO PRN (16:58)
[2021-05-15] MEDS: IBUPROFEN 400 MG TABLET (FP) PO PRN (16:58)
[2021-05-15] MEDS: TAMSULOSIN HCL 0.4 MG CAP PO SCH (21:18)
[2021-05-15] MEDS: THIAMINE HCL 100 MG TABLET (FP) PO SCH (21:18)
[2021-05-15] MEDS: risperiDONE 1 MG TABLET PO SCH (21:18)
[2021-05-15] MEDS: MIRTAZAPINE 15 MG TABLET (FP) PO SCH (21:18)
[2021-05-15] MEDS: MONTELUKAST NA 10 MG TABLET PO SCH (21:19)
[2021-05-15] MEDS: SUVOREXANT 5 MG TABLET PO PRN (21:52)
[2021-05-16] MEDS: BICTEGRAV/EMTRICIT/TENOFOV (BIKTARVY) 50-200-25 MG TABLET PO SCH (07:00)
[2021-05-16] MEDS: MAG HYDROX/AL HYDROX/SIMETH 30 ML UNIT-DOSE CUP PO PRN (09:12)
[2021-05-16] MEDS ORDERED: methaDONE HCL 10 MG TABLET ONE (09:27)
[2021-05-16] MEDS ORDERED: methaDONE HCL 40 MG DISPERSABLE TABLET ONE (09:27)
[2021-05-16] MEDS: TIOTROPIUM BROMIDE 2.5 MCG (SPIRIVA) RESPIMAT INHALER IH SCH (10:06)
[2021-05-16] MEDS: PANTOPRAZOLE 40 MG TABLET PO SCH (10:06)
[2021-05-16] MEDS: PRENATAL VITAMINS W/ FOLIC ACID TABLET (FP) PO SCH (10:06)
[2021-05-16] MEDS: BUDESONIDE/FORMETEROL FUMARATE 160/4.5 mcg INHALER IH SCH ×2 (10:06→23:20)
[2021-05-16] MEDS: AZITHROMYCIN 250 MG TABLET PO SCH (10:07)
[2021-05-16] MEDS: NICOTINE 7 MG/24 HOURS TOPICAL PATCH TD SCH (10:09)
[2021-05-16] MEDS: TETRAHYDROZOLINE HCL EYE DROPS OD PRN (10:09)
[2021-05-16] MEDS: TOLNAFTATE 1% CREAM 15 GM TUBE TP SCH ×2 (10:11→21:14)
[2021-05-16] MEDS: ALBUTEROL SO4 HFA INHALER IH PRN (14:42)
[2021-05-16] MEDS: TAMSULOSIN HCL 0.4 MG CAP PO SCH (21:13)
[2021-05-16] MEDS: MIRTAZAPINE 15 MG TABLET (FP) PO SCH (21:13)
[2021-05-16] MEDS: risperiDONE 1 MG TABLET PO SCH (21:13)
[2021-05-16] MEDS: MONTELUKAST NA 10 MG TABLET PO SCH (21:13)
[2021-05-16] MEDS: THIAMINE HCL 100 MG TABLET (FP) PO SCH (21:14)
[2021-05-16] MEDS: SUVOREXANT 5 MG TABLET PO PRN (21:17)
[2021-05-17] MEDS: guaiFENesin 200 MG/10 ML 10 ML UNIT-DOSE CUPS PO PRN ×2 (06:14→13:24)
[2021-05-17] MEDS: BICTEGRAV/EMTRICIT/TENOFOV (BIKTARVY) 50-200-25 MG TABLET PO SCH (07:11)
[2021-05-17] MEDS: PANTOPRAZOLE 40 MG TABLET PO SCH (09:38)
[2021-05-17] MEDS ORDERED: methaDONE HCL 10 MG TABLET ONE (09:38)
[2021-05-17] MEDS ORDERED: methaDONE HCL 40 MG DISPERSABLE TABLET ONE (09:38)
[2021-05-17] MEDS: PRENATAL VITAMINS W/ FOLIC ACID TABLET (FP) PO SCH (09:39)
[2021-05-17] MEDS: TIOTROPIUM BROMIDE 2.5 MCG (SPIRIVA) RESPIMAT INHALER IH SCH (09:39)
[2021-05-17] MEDS: NICOTINE 7 MG/24 HOURS TOPICAL PATCH TD SCH (09:39)
[2021-05-17] MEDS: BUDESONIDE/FORMETEROL FUMARATE 160/4.5 mcg INHALER IH SCH ×2 (09:39→21:29)
[2021-05-17] MEDS: TETRAHYDROZOLINE HCL EYE DROPS OD PRN (09:41)
[2021-05-17] MEDS: TOLNAFTATE 1% CREAM 15 GM TUBE TP SCH ×2 (09:41→23:08)
[2021-05-17] MEDS ORDERED: AZITHROMYCIN 250 MG TABLET PO ONE (11:53)
[2021-05-17] MEDS: ALBUTEROL SO4 HFA INHALER IH PRN ×2 (13:25→19:28)
[2021-05-17] MEDS: THIAMINE HCL 100 MG TABLET (FP) PO SCH (21:28)
[2021-05-17] MEDS: risperiDONE 1 MG TABLET PO SCH (21:28)
[2021-05-17] MEDS: MIRTAZAPINE 15 MG TABLET (FP) PO SCH (21:28)
[2021-05-17] MEDS: SUVOREXANT 5 MG TABLET PO PRN (21:29)
[2021-05-17] MEDS: TAMSULOSIN HCL 0.4 MG CAP PO SCH (21:29)
[2021-05-17] MEDS: MONTELUKAST NA 10 MG TABLET PO SCH (21:31)
[2021-05-17] MEDS: IBUPROFEN 400 MG TABLET (FP) PO PRN (21:31)
[2021-05-18] MEDS: BICTEGRAV/EMTRICIT/TENOFOV (BIKTARVY) 50-200-25 MG TABLET PO SCH (07:13)
[2021-05-18] MEDS ORDERED: methaDONE HCL 10 MG TABLET ONE (09:37)
[2021-05-18] MEDS ORDERED: methaDONE HCL 40 MG DISPERSABLE TABLET ONE (09:38)
[2021-05-18] MEDS: PANTOPRAZOLE 40 MG TABLET PO SCH (09:39)
[2021-05-18] MEDS: PRENATAL VITAMINS W/ FOLIC ACID TABLET (FP) PO SCH (09:39)
[2021-05-18] MEDS: BUDESONIDE/FORMETEROL FUMARATE 160/4.5 mcg INHALER IH SCH ×2 (09:40→21:23)
[2021-05-18] MEDS: TIOTROPIUM BROMIDE 2.5 MCG (SPIRIVA) RESPIMAT INHALER IH SCH (09:40)
[2021-05-18] MEDS: NICOTINE 7 MG/24 HOURS TOPICAL PATCH TD SCH (09:40)
[2021-05-18] MEDS: TETRAHYDROZOLINE HCL EYE DROPS OD PRN (09:41)
[2021-05-18] MEDS: TOLNAFTATE 1% CREAM 15 GM TUBE TP SCH ×2 (09:41→21:24)
[2021-05-18] MEDS: ERGOCALCIFEROL (VIT D2) 50,000 UNIT (1.25 MG) CAPSULE PO SCH (10:10)
[2021-05-18] MEDS: TAMSULOSIN HCL 0.4 MG CAP PO SCH (21:23)
[2021-05-18] MEDS: THIAMINE HCL 100 MG TABLET (FP) PO SCH (21:23)
[2021-05-18] MEDS: MIRTAZAPINE 15 MG TABLET (FP) PO SCH (21:23)
[2021-05-18] MEDS: MONTELUKAST NA 10 MG TABLET PO SCH (21:23)
[2021-05-18] MEDS: risperiDONE 1 MG TABLET PO SCH (21:23)
[2021-05-18] MEDS: SUVOREXANT 5 MG TABLET PO PRN (21:25)
[2021-05-19] MEDS: ALBUTEROL SO4 HFA INHALER IH PRN ×2 (02:02→08:53)
[2021-05-19 06:32] VITALS: TEMP 97.5
[2021-05-19] MEDS: BICTEGRAV/EMTRICIT/TENOFOV (BIKTARVY) 50-200-25 MG TABLET PO SCH (07:35)
[2021-05-19] MEDS ORDERED: methaDONE HCL 10 MG TABLET ONE (08:45)
[2021-05-19] MEDS ORDERED: methaDONE HCL 40 MG DISPERSABLE TABLET ONE (08:45)
[2021-05-19] MEDS: BUDESONIDE/FORMETEROL FUMARATE 160/4.5 mcg INHALER IH SCH (09:09)
[2021-05-19] MEDS: TETRAHYDROZOLINE HCL EYE DROPS OD PRN (09:11)
[2021-05-19] MEDS: PRENATAL VITAMINS W/ FOLIC ACID TABLET (FP) PO SCH (09:11)
[2021-05-19] MEDS: PANTOPRAZOLE 40 MG TABLET PO SCH (09:11)
[2021-05-19] MEDS: NICOTINE 7 MG/24 HOURS TOPICAL PATCH TD SCH (09:11)
[2021-05-19 09:16] VITALS: BP 99/66; PULSE 88
[2021-05-19] MEDS: TOLNAFTATE 1% CREAM 15 GM TUBE TP SCH (09:16)
[2021-05-19] MEDS: TIOTROPIUM BROMIDE 2.5 MCG (SPIRIVA) RESPIMAT INHALER IH SCH (09:16)
== END 2021-05-19 10:11 | disposition home or self-care (01) | DRG 772 ==
LOC: YASAS 20:20 → Y3W 20:22 → Y3E 04-30 09:24
PROVIDERS: ADMIT Allergy & Immunology; ATTEND Allergy & Immunology
PROC: HZ42ZZZ Group Counseling for Substance Abuse Treatment, Cognitive-Behavioral (ICD-10-PCS; principal; 2021-04-28)
DX: F11.20 Opioid dependence, uncomplicated (principal); F10.20 Alcohol dependence, uncomplicated; F14.20 Cocaine dependence, uncomplicated; F13.20 Sedative, hypnotic or anxiolytic dependence, uncomplicated; F19.282 Other psychoactive substance dependence with psychoactive substance-induced sleep disorder; F19.24 Other psychoactive substance dependence with psychoactive substance-induced mood disorder; F32.9 Major depressive disorder, single episode, unspecified; Z21 Asymptomatic human immunodeficiency virus [HIV] infection status; J18.9 Pneumonia, unspecified organism; J44.9 Chronic obstructive pulmonary disease, unspecified; K21.9 Gastro-esophageal reflux disease without esophagitis; N40.0 Benign prostatic hyperplasia without lower urinary tract symptoms; H53.8 Other visual disturbances; R07.9 Chest pain, unspecified; Z87.891 Personal history of nicotine dependence
CPT/HCPCS: 82140; 93005; 93010; C9803; J2794; U0003; U0005

== ENCOUNTER 2021-05-13 11:40 | Emergency (ER) | payer OTHER ==
[2021-05-13 12:01] VITALS: TEMP 99.8; BMI 25.7
[2021-05-13] MEDS ORDERED: ACETAMINOPHEN 500 MG TABLET (FP) PO ONE (12:09)
[2021-05-13] MEDS ORDERED: ACETAMINOPHEN 325 MG TABLET (FP) ONE (12:10)
[2021-05-13 12:28] LABS: BASO % 0.1 % (0-2.0); EOS % 1.1 % (0-4.5); HEMATOCRIT 36.1 % (35.4-49); HEMOGLOBIN 12.2 GM/dL (11.7-16.9); LYMPH % 10.8 % (8-40); MCH 31.5 pg (25.7-33.7); MCHC 33.9 g/dl (32.0-35.9); MEAN PLT VOLUME 7.6 fl (7.5-11.1); MONO % 10.4 % (3.8-10.2); NEUT % 77.6 % (42.8-82.8); PLATELET COUNT 198 10^3/uL (134-434); RBC 3.89 M/mm3 (4.00-5.60); RDW 15.1 % (11.9-15.9)
[2021-05-13 12:51] LABS: CHLORIDE 103 mmol/L (98-107); SODIUM 137 mmol/L (136-145)
[2021-05-13 12:54] LABS: ALBUMIN 3.5 g/dl (3.4-5.0); ANION GAP 4 MMOL/L (8-16); BLOOD UREA NITROGEN 12.8 mg/dL (7-18); CO2 30 mmol/L (21-32); GLUCOSE,RANDOM 95 mg/dL (74-106)
[2021-05-13 12:57] LABS: CREATININE 0.7 mg/dL (0.55-1.3); SGOT/AST 42 U/L (15-37); SGPT/ALT 34 U/L (13-61)
[2021-05-13 12:59] LABS: TOT PROT 7.5 g/dl (6.4-8.2)
[2021-05-13 13:00] LABS: ALK PHOS 122 U/L (45-117)
[2021-05-13] MEDS ORDERED: AZITHROMYCIN 250 MG TABLET PO ONE (13:37)
[2021-05-13] MEDS ORDERED: AZITHROMYCIN 500 MG TABLET ONE (13:40)
[2021-05-13 13:57] VITALS: BP 126/63; PULSE 84
== END 2021-05-13 13:57 ==
LOC: JER 11:40
DX: R07.9 Chest pain, unspecified (principal); J18.9 Pneumonia, unspecified organism
CPT/HCPCS: 36415; 71045-TC-FY; 80053; 82550; 82553; 84484; 85025; 87804; 93005; 93010; 99284-25; C9803; U0003; U0005

== ENCOUNTER 2022-01-03 09:55 | Inpatient (IN) | payer OTHER ==
[2022-01-03 10:22] VITALS: BMI 24.3
[2022-01-03] MEDS ORDERED: BISMUTH SUBSALICYLATE 262 MG/15 ML BTL PO PRN (12:14)
[2022-01-03] MEDS ORDERED: ONDANSETRON *ODT* 4 MG TABLET SL PRN (12:14)
[2022-01-03] MEDS ORDERED: ACETAMINOPHEN 325 MG TABLET (FP) PO PRN ×2 (12:14)
[2022-01-03] MEDS ORDERED: MAG HYDROX/AL HYDROX/SIMETH 30 ML UNIT-DOSE CUP PO PRN (12:14)
[2022-01-03] MEDS ORDERED: LORazepam 1 MG TABLET PO PRN (12:14)
[2022-01-03] MEDS ORDERED: IBUPROFEN 600 MG TABLET (FP) PO PRN (12:14)
[2022-01-03] MEDS ORDERED: MAGNESIUM CITRATE 300 ML BOTTLE PO PRN (12:14)
[2022-01-03] MEDS ORDERED: METHOCARBAMOL 500 MG TABLET PO PRN (12:14)
[2022-01-03] MEDS ORDERED: LOPERAMIDE HCL 2 MG CAPSULE PO PRN (12:14)
[2022-01-03] MEDS ORDERED: BENZOCAINE/MENTHOL (CHLORASEPTIC ) LOZENGE MM PRN (12:14)
[2022-01-03] MEDS ORDERED: NALOXONE HCL (KLOXXADO) 8 MG SPRAY NS PRN (12:14)
[2022-01-03] MEDS ORDERED: DICYCLOMINE HCL 10 MG CAPSULE PO PRN (12:14)
[2022-01-03] MEDS ORDERED: MAGNESIUM HYDROX 2400MG/30ML ORAL SUSPENSION 30 ML CUP PO PRN (12:14)
[2022-01-03] MEDS ORDERED: IBUPROFEN 400 MG TABLET (FP) PO PRN (12:14)
[2022-01-03] MEDS: PRENATAL VITAMINS W/ FOLIC ACID TABLET (FP) PO SCH (12:57)
[2022-01-03] MEDS: LORazepam 2 MG TABLET PO SCH ×3 (12:57→22:17)
[2022-01-03] MEDS ORDERED: methaDONE HCL 10 MG TABLET PO ONE (13:28)
[2022-01-03] MEDS: hydrOXYzine PAMOATE 25 MG CAPSULE (FP) PO SCH ×2 (14:56→17:31)
[2022-01-03 15:01] LABS: HEMOGLOBIN 13.6 GM/dL (11.7-16.9); MCH 30.3 pg (25.7-33.7); MCHC 33.1 g/dl (32.0-35.9); MEAN CELL VOLUME 91.6 fl (80-96); MEAN PLT VOLUME 9.3 fl (7.5-11.1); PLATELET COUNT 235 10^3/uL (134-434); RBC 4.48 M/mm3 (4.00-5.60); WHITE BLOOD COUNT 7.6 K/mm3 (4.0-10.0)
[2022-01-03 15:05] LABS: CALCIUM 9.3 mg/dL (8.5-10.1)
[2022-01-03 15:06] LABS: ALBUMIN 3.3 g/dl (3.4-5.0); BLOOD UREA NITROGEN 14.4 mg/dL (7-18)
[2022-01-03 15:09] LABS: CREATININE 0.9 mg/dL (0.55-1.3)
[2022-01-03 15:12] LABS: BILIRUBIN,TOTAL 0.4 mg/dL (0.2-1); TOT PROT 7.8 g/dl (6.4-8.2)
[2022-01-03] MEDS ORDERED: ALBUTEROL SO4 HFA INHALER IH PRN (20:41)
[2022-01-03] MEDS ORDERED: hydrOXYzine PAMOATE 25 MG CAPSULE (FP) PO PRN (20:44)
[2022-01-03] MEDS ORDERED: PATIENT'S OWN MEDICATION (NON-FORMULARY) (Umeclidinium Bromide [Incruse Ellipta] 62.5 MCG IH SCH (20:45)
[2022-01-03] MEDS: BUDESONIDE/FORMETEROL FUMARATE 160/4.5 mcg INHALER IH SCH (22:15)
[2022-01-03] MEDS: THIAMINE HCL 100 MG TABLET (FP) PO SCH (22:16)
[2022-01-03] MEDS: MONTELUKAST NA 10 MG TABLET PO SCH (22:16)
[2022-01-03] MEDS: TAMSULOSIN HCL 0.4 MG CAP PO SCH (22:16)
[2022-01-03] MEDS: MELATONIN 5 MG TABLETS PO SCH (22:16)
[2022-01-03] MEDS: risperiDONE 1 MG TABLET PO SCH (22:16)
[2022-01-03] MEDS: PANTOPRAZOLE 40 MG TABLET PO SCH (22:16)
[2022-01-04] MEDS ORDERED: methaDONE HCL 40 MG DISPERSABLE TABLET PO SCH (06:00)
[2022-01-04] MEDS: LORazepam 2 MG TABLET PO SCH ×4 (07:30→22:39)
[2022-01-04] MEDS ORDERED: ERGOCALCIFEROL (VIT D2) 50,000 UNIT (1.25 MG) CAPSULE PO SCH (10:00)
[2022-01-04] MEDS: PRENATAL VITAMINS W/ FOLIC ACID TABLET (FP) PO SCH (10:21)
[2022-01-04] MEDS: BUDESONIDE/FORMETEROL FUMARATE 160/4.5 mcg INHALER IH SCH ×2 (10:21→22:41)
[2022-01-04] MEDS: BICTEGRAV/EMTRICIT/TENOFOV (BIKTARVY) 50-200-25 MG TABLET PO SCH (10:22)
[2022-01-04] MEDS: TAMSULOSIN HCL 0.4 MG CAP PO SCH (10:22)
[2022-01-04] MEDS: FOLIC ACID 1 MG TABLET (FP) PO SCH (10:22)
[2022-01-04] MEDS: PANTOPRAZOLE 40 MG TABLET PO SCH (10:22)
[2022-01-04] MEDS ORDERED: LACTULOSE 20 GM/30 ML UDC (FOR ORAL USE ONLY) PO ONE (10:39)
[2022-01-04] MEDS ORDERED: FLU VACC QS2022-23(6MOS UP)/PF 60 MCG/0.5 ML SYRINGE IM ONE (12:00)
[2022-01-04] MEDS: LACTULOSE 20 GM/30 ML UDC (FOR ORAL USE ONLY) PO SCH ×2 (15:25→22:39)
[2022-01-04] MEDS: risperiDONE 1 MG TABLET PO SCH (22:39)
[2022-01-04] MEDS: MONTELUKAST NA 10 MG TABLET PO SCH (22:39)
[2022-01-04] MEDS: THIAMINE HCL 100 MG TABLET (FP) PO SCH (22:39)
[2022-01-04] MEDS: MELATONIN 5 MG TABLETS PO SCH (22:42)
[2022-01-05] MEDS: LACTULOSE 20 GM/30 ML UDC (FOR ORAL USE ONLY) PO SCH (05:04)
[2022-01-05] MEDS: LORazepam 1 MG TABLET PO SCH ×2 (05:04→10:33)
[2022-01-05] MEDS: BICTEGRAV/EMTRICIT/TENOFOV (BIKTARVY) 50-200-25 MG TABLET PO SCH (10:33)
[2022-01-05] MEDS: PANTOPRAZOLE 40 MG TABLET PO SCH (10:33)
[2022-01-05] MEDS: PRENATAL VITAMINS W/ FOLIC ACID TABLET (FP) PO SCH (10:33)
[2022-01-05] MEDS: TAMSULOSIN HCL 0.4 MG CAP PO SCH (10:33)
[2022-01-05] MEDS: BUDESONIDE/FORMETEROL FUMARATE 160/4.5 mcg INHALER IH SCH (10:33)
[2022-01-05] MEDS: FOLIC ACID 1 MG TABLET (FP) PO SCH (10:34)
[2022-01-05] MEDS ORDERED: ACETAMINOPHEN 325 MG TABLET (FP) PO PRN (12:28)
[2022-01-05 16:58] LABS: URINE APPEARANCE CLEAR; URINE BILIRUBIN NEGATIVE (NEGATIVE); URINE COLOR YELLOW; URINE GLUCOSE (UA) NEGATIVE (NEGATIVE); URINE KETONE TRACE (NEGATIVE); URINE LEUK ESTERASE NEGATIVE (NEGATIVE); URINE NITRITE NEGATIVE (NEGATIVE); URINE PROTEIN NEGATIVE (NEGATIVE); URINE UROBILINOGEN 0.2 mg/dL (0.2-1.0)
[2022-01-05 18:08] VITALS: BP 122/81; PULSE 100; RESP 18; TEMP 97.1
[2022-01-06] MEDS ORDERED: LORazepam 0.5 MG TABLET PO PRN
[2022-01-06] MEDS ORDERED: LORazepam 0.5 MG TABLET PO SCH (05:00)
[2022-01-07] MEDS ORDERED: LORazepam 0.5 MG TABLET PO ONE (05:00)
== END 2022-01-05 18:40 | disposition home or self-care (01) | DRG 773 ==
LOC: YASAS 09:55 → Y6N 12:23
PROVIDERS: ADMIT Allergy & Immunology; ATTEND Surgery
PROC: HZ2ZZZZ Detoxification Services for Substance Abuse Treatment (ICD-10-PCS; principal; 2022-01-03)
DX: F10.230 Alcohol dependence with withdrawal, uncomplicated (principal); F11.20 Opioid dependence, uncomplicated; F14.20 Cocaine dependence, uncomplicated; F13.20 Sedative, hypnotic or anxiolytic dependence, uncomplicated; F12.20 Cannabis dependence, uncomplicated; F32.A Depression, unspecified; F41.9 Anxiety disorder, unspecified; Z21 Asymptomatic human immunodeficiency virus [HIV] infection status; J44.9 Chronic obstructive pulmonary disease, unspecified; K21.9 Gastro-esophageal reflux disease without esophagitis; N40.0 Benign prostatic hyperplasia without lower urinary tract symptoms; Z96.641 Presence of right artificial hip joint; Z86.19 Personal history of other infectious and parasitic diseases; Z87.891 Personal history of nicotine dependence
CPT/HCPCS: 36415; 80053; 81003; 82140; 82962; 85027; 86593; 86780; 87811; C9803-CS; G0008; J2794; Q0162; Q2036; U0003; U0005